=== PATIENT | male | born 1980 | race African-American/Black ===

== ENCOUNTER 2024-06-21 14:39 | Emergency (ER) | payer OTHER, SELFPAY ==
--- NOTE | ~2024-06-21 | XR_ITS ---
EXAMINATION: XR chest 2V DATE: 06/21/2024 16:58 INDICATION: Chest pain. TECHNIQUE: Frontal and lateral views of the chest were obtained. COMPARISON: Chest 2 views 07/07/09. FINDINGS: There is no pneumonia, pleural effusion, or pneumothorax. The heart size is normal. IMPRESSION: 1. No acute cardiopulmonary disease. Reviewed, dictated and finalized at location A. RAL RESOURCES INSTRUCTOR
--- NOTE | 2024-06-21 14:40 | ECG_ITS ---
Test Date: 2024-06-21 14:45:08 Measurements Intervals Line [place] Rate: 90 P: 60 AR: 154 QRS: -34 QRSD: 100 T: -10 QT: 348 QTc: 427 Interpretive Statements SINUS RHYTHM LEFT AXIS DEVIATION LEFT VENTRICULAR HYPERTROPHY AND ST-T CHANGE CANNOT R/O SEPTAL INFARCT, AGE INDETERMINATE MINIMAL Q WAVES- HIGH LATERAL LEADS BORDERLINE T WAVE ABNORMALITY- INF/LAT LEADS BASELINE ARTIFACT- I, II, AVR, AVF, V1-V2, V4-V6 ABNORMAL ECG No previous ECG available for comparison Electronically Signed On 06-21-2024 17:07:07 CORPORATE TREASURER by Alvaro May D.O.
--- OUTSIDE RECORDS SUMMARY | 2024-06-21 14:41 | XMS_ITS | Referral Summary ---
Author Organization [facility] Address [address] [place] [address] Care Team Providers Care Currency Exchange Specialist Name Role Phone Ck Palafox MD Primary Care Provider [phone] Source Comments [facility],non-owned Affiliates and Associated Physician Practices is amultiple site organization consisting of ambulatory clinics and hospital sitesin [place] and [place]. This disclosure is being madepursuant to the Care Everywhere program and may not contain all information available regarding this patient. Last updated 18.[facility] Allergies No known active allergies Medications * Be aware that medications may not be up to date on this document. Alwaysverify current medications with the patient. Medication Sig Dispensed Refills Start Date End Date Status aspirin (ASPIRIN) 81 MG chew tablet Take 1 tablet by mouth once daily 100 tablet 3 11/12/2019 Active atorvastatin (LIPITOR) 40 MG tablet Take 1 tablet by mouth at bedtime 30 tablet 3 11/11/2019 Active amLODIPine (Norvasc) 10 MG tablet Take 1 (one) tablet by mouth once daily 90 tablet 2 09/26/2022 Active lisinopril (Prinivil; Zestril) 10 MG tablet Take 1 (one) tablet by mouth once daily 90 tablet 2 09/26/2022 Active azithromycin (Zithromax) 250 MG tablet TAKE 2 TABLETS BY MOUTH ON DAY 1, AND THEN TAKE 1 TABLET BY MOUTH ONCE A DAY ON DAY 2 THROUGH DAY 5 01/02/2022 Active lidocaine (Lidoderm) 5 % patch Apply 1 (one) patch to skin once daily Apply patch to most painful area and remove after 12 hours. May reapply a new patch 12 hours later. 15 patch 04/29/2023 Active cyclobenzaprine (Flexeril) 10 MG tablet Take 1 (one) tablet by mouth 3 times daily as needed for Muscle Spasms 30 tablet 04/29/2023 Active Active Problems Problem Noted Date Diagnosed Date Hospital discharge follow-up 10/05/2022 Acute right-sided weakness 09/23/2022 HTN (hypertension) 09/23/2022 HLD (hyperlipidemia) 09/23/2022 Tobacco abuse 09/23/2022 Alcohol abuse 09/23/2022 Facial droop 09/23/2022 Right sided weakness 09/23/2022 Basal ganglia stroke 09/23/2022 Cerebrovascular accident (CVA) 11/10/2019 Immunizations Name Administration Dates Next Due HEP A VACCINE, ADULT 03/12/2019 INFLUENZA VACCINE 03/30/2019 Social History Tobacco Use Types Packs/Day Years Used Date Smoking Tobacco: Former Cigarettes Smokeless Tobacco: Never Tobacco Cessation:Counseling Given: Not Answered Alcohol Use Standard Drinks/Week Comments Yes 0 (1 standard drink = 0.6 oz pur e alcohol) occa AUDIT-C Answer Date Recorded Q1: How often do you have a drink containing alcohol? 4 or more times a week 09/23/2022 Q2: How many drinks containi ng alcohol do you have on a typical day when you are drinking? 5 or 6 Q3: How often do you have si x or more drinks on one occasion? Weekly 09/23/2022 Overall Financial Resource Strain (CARDIA) Answe r Date Recorded How hard is it for you to pa y for the very basics like food, housing, medical care, and heating? Not hard at all 09/23/2022 [facility] - Occupational Stress Questionnaire Answer Date Recorded Do you feel stress - tense, restless, nervous, or anxious, or unable to sleep at night because your mind is troubled all the time - these days? Not at all 09/23/2022 Hunger Vital Sign Answer Date Recorded Within the past 12 months, y ou worried that your food would run out before you got the money to buy more. Never true 09/24/19 23 Within the past 12 months, t he food you bought just didn't last and you didn't have money to get more. Never true 09/23/2022 PRAPARE - Transportation Answer Date Re corded In the past 12 months, has l ack of transportation kept you from medical appointments or from getting medications? No 08/29 In the past 12 months, has l ack of transportation kept you from meetings, work, or from getting things needed for daily living? No 09/23/2022 Housing Stability Vital Sign Answer Kings e Recorded In the last 12 months, was t here a time when you were not able to pay the mortgage or rent on time? No 09/23/2022 In the last 12 months, how many places have you lived? 1 09/23/2022 In the last 12 months, was t here a time when you did not have a steady place to sleep or slept in a care home (including now)? No 09/23/2022 Sex and Gender Information Value Date Recorded Sex Assigned at Male 04/29/2023 9:07 PM PHOTOGEOLOGIST Gender Identity Male 04/29/2023 9:07 PM PHOTOGEOLOGIST Sexual Orientation Straight 04/29/2023 9: 07 PM PHOTOGEOLOGIST Last Filed Vital Signs Vital Sign Reading Time Taken Comments Blood Pressure 144/95 04/29/2023 8:31 PM PHOTOGEOLOGIST Pulse 85 04/29/2023 8:35 PM PHOTOGEOLOGIST Temperature 36.4 C (97.5 F) 04/29/2023 1:39 PM PHOTOGEOLOGIST Respiratory Rate 18 04/29/2023 8:35 PM PHOTOGEOLOGIST Oxygen Saturation 96% 04/29/2023 1:18 PM PHOTOGEOLOGIST Inhaled Oxygen Concentration - - Weight 86.2 kg (190 lb) 04/29/2023 1:18 PM PHOTOGEOLOGIST Height 172.7 cm (5' 8 ) 04/29/2023 1:18 PM PHOTOGEOLOGIST Body Mass Index 28.89 04/29/2023 1:18 PM PHOTOGEOLOGIST Functional Status Functional Status Response Date of Assess ment Is person deaf or have serious hearing difficult y? No 09/23/2022 Is person blind or have serious difficulty seein g? No 09/23/2022 Does person have serious dif ficulty walking/climbing stairs? No 09/23/2022 Does person have difficulty dressing/bathing? No 09/23/2022 Does person have difficulty doing errands alone? No 09/23/2022 Cognitive Status Response Date of Assessm ent Does person have difficulty concentrating/remembering/making decisions? No 09/23/2022 Plan of Treatment Not on file Procedures Procedure Name Priority Date/Time Associated Diagnosis Comments BASIC METABOLIC PANEL (CALCIUM TOTAL) Routine 09/25/2022 1:55 AM CDT from Last 3 Months or Most Recently Relevant to Health Maintenance Results * BASIC METABOLIC PANEL (CALCIUM TOTAL) (09/25/2022 1:55 AM CDT) BUN 9 7 - 26 mg/dL 09/25/2022 3:26 AM [facility] Creatinine 0.87 0.71 - 1.16 mg/dL 09/25/2022 3:26 AM [facility] Sodium 140 136 - 145 mmol/L 09/25/2022 3:26 AM [facility] Potassium 3.8 3.5 - 4.5 mmol/L 09/25/2022 3:26 AM [facility] Chloride 106 98 - 107 mmol/L 09/25/2022 3:26 AM [facility] CO2 22 22 - 29 mmol/L 09/25/2022 3:26 AM [facility] Glucose 103 70 - 115 mg/dL 09/25/2022 3:26 AM [facility] Calcium 9.3 8.4 - 10.2 mg/dL 09/25/2022 3:26 AM [facility] Anion Gap 16 8 - 18 09/25/2022 3:26 AM [facility] BUN/Creatinine Ratio 10 7 - 23 09/25/2022 3:26 AM [facility] Osmolality Calculated 289 270 - 300 mOsm/kg 09/25/2022 3:26 AM [facility] eGFR by CKD-EPI >90 >=90 mL/min/1.7 3 m2 09/25/2022 3:26 AM [facility] Blood BLOOD SPECIMEN / Unknown Lab Venipuncture / Unknown 09/25/2022 1:55 AM CDT 09/25/2022 2:55 AM CDT Nicolas Couch MD LAB - CHEMISTRY ORDERABLES [facility] [address] [place] [id number], [facility] [phone] from Last 3 Months or Most Recently Relevant to Health Maintenance Advance Directives * Full Code (Latest Code Status on File) Date Activated Date Inactivated Comments 09/23/2022 6:58 AM 09/25/2022 8:15 PM * Full Code Date Activated Date Inactivated Comments 11/11/2019 1:28 AM 11/11/2019 6:17 PM * Full Code Date Activated Date Inactivated Comments 11/10/2019 12:24 PM 11/11/2019 1:28 AM Care Teams Currency Exchange Specialist Relationship Specialty Start Date End Date Ck Palafox MD PCP - General 03/29/13
--- OUTSIDE RECORDS SUMMARY | 2024-06-21 14:41 | XMS_ITS | Clinical Summary ---
Author Organization [facility] Address [address] [place] [address] Care Team Providers Care Port Traffic Manager Name Role Phone María Smith MD Primary Care Provider Allergies No known active allergies Medications ondansetron (ZOFRAN-ODT) 4 MG disintegrating tablet Take 1 tablet (4 mg total) by mouth every 8 (eight) hours as needed for Nausea. 20 tablet Active Social History Tobacco Use Types Packs/Day Years Used Date Smoking Tobacco: Every Day Cigarettes Smokeless Tobacco: Never Tobacco Cessation:Ready to Q uit: Not Asked; Counseling Given: Not Answered Alcohol Use Standard Drinks/Week Comments Yes 0 (1 standard drink = 0.6 oz pur e alcohol) Socially Sex and Gender Information Value Date Recorded Sex Assigned at Not on file Legal Sex Male 2:54 PM [employer] Gender Identity Not on file Sexual Orientation Not on file Last Filed Vital Signs Vital Sign Reading Time Taken Comments Blood Pressure 143/92 07/02/2022 3:05 PM [employer] Pulse 84 07/02/2022 3:05 PM [employer] Temperature 37 C (98.6 F) 07/02/2022 3:05 PM [employer] Respiratory Rate 18 07/02/2022 3:05 PM [employer] Oxygen Saturation 98% 07/02/2022 3:05 PM [employer] Inhaled Oxygen Concentration - - Weight 83.9 kg (185 lb) 07/02/2022 3:05 PM [employer] Height 177.8 cm (5' 10 ) 07/02/2022 3:05 PM [employer] Body Mass Index 26.54 07/02/2022 3:05 PM [employer] Plan of Treatment Health Maintenance Due Date Last Done Comments Colorectal Cancer Screening Colonoscopy (10 Years) 1978 Annual Physical 1981 Pneumococcal Vaccine: Pediat rics (0 to 5 Years) and At-Risk Patients (6 to 64 Years) (1 of 2 - PCV) 02/18/1984 Hepatitis C 02/18/1996 DTaP, Tdap and Td Vaccines ( 1 - Tdap) 1997 Hepatitis B Vaccines (1 of 3 - 19+ 3-dose series) 1997 COVID-19 Vaccine (1 - 2023-2 5 season) 2023 Influenza Adult (#1) 2024 Meningococcal B Vaccine Aged Out No l onger eligible based on patient's age to complete this topic Meningococcal Vaccine Aged Out No eldon linnette eligible based on patient's age to complete this topic RSV Immunizations Under 20 Months Aged Out No longer eligible based on patient's age to complete this topic Insurance [facility] Care Teams Port Traffic Manager Relationship Specialty Start Date End Date [place] [id number] [address] [address] [place] [address] PCP - General INTERNAL MEDICINE 07/02/22
--- OUTSIDE RECORDS SUMMARY | 2024-06-21 14:41 | XMS_ITS | Referral Summary ---
Author Organization [facility] Address [address] [place] [address] Care Team Providers Care Portfolio Administrator Name Role Phone María Smith MD Primary Care Provider Encounters Date Type Department Care Team Description 04/01/2024 3:30 PM TABLE MACHINE OPERATOR Office Visit [facility] Medical [facility] Primary Care [address] [id number] María Smith MD History of stroke (Primary Dx); Cerebrovascular accident (CVA), unspecified mechanism (HCC); Mixed hyperlipidemia; Primary hypertension; Cocaine abuse (HCC); Tobacco dependence syndrome; Prediabetes; Vitamin D deficiency; Need for hepatitis B screening test from Last 3 Months Allergies No known active allergies Medications acetaminophen (TYLENOL) 500 mg tablet 1000 MG (2 X 500 MG) ORALLY EVERY 6 HOURS NEEDED FOR FEVER OR PAIN 06/22/19 24 Active tadalafiL (CIALIS) 20 mg tablet TAKE 1 TABLET BY MOUTH NEEDED DIRECTED 04/16/20 23 Active loratadine (CLARITIN) 10 mg tablet 10 MG ORALLY DAILY 06/22/19 24 Active fluticasone propionate (FLONASE) 50 mcg/actuation nasal spray 2 SPRAY INTRANASALLY DAILY ADMINISTER INTO EACH NOSTRIL 06/22/19 24 Active amLODIPine (NORVASC) 10 mg tabletIndications: Cerebrovascular accident (CVA), unspecified mechanism (HCC) Take 1 tablet (10 mg total) by mouth daily 30 tablet 11 04/01/20 24 025 Active aspirin 81 mg enteric coated tabletIndications: Cerebrovascular accident (CVA), unspecified mechanism (HCC) Take 1 tablet (81 mg total) by mouth daily 30 tablet 04/01/20 24 Active atorvastatin (LIPITOR) 40 mg tabletIndications: Cerebrovascular accident (CVA), unspecified mechanism (HCC),Mixed hyperlipidemia Take 1 tablet (40 mg total) by mouth nightly at bedtime. 30 tablet 04/01/20 24 Active clopidogreL (PLAVIX) 75 mg tabletIndications: Cerebrovascular accident (CVA), unspecified mechanism (HCC) Take 1 tablet (75 mg total) by mouth daily 30 tablet 04/01/20 24 Active lisinopriL (PRINIVIL,ZESTRIL) 20 mg tabletIndications: Primary hypertension Take 1 tablet (20 mg total) by mouth daily 30 tablet 04/01/20 24 Active Active Problems Problem Noted Date Diagnosed Date Chronic back pain 04/01/2024 Prediabetes 07/16/2023 Assessment & Plan (04/03/2024 8:00 PM TABLE MACHINE OPERATOR): Last A1C Lab Results Component Value Date HGBA1C 5.8 (H) 07/09/2023 Low carb diet Continue off medication Vitamin D deficiency 07/16/2023 Cocaine abuse 11/06/2022 Assessment & Plan (04/03/2024 8:00 PM TABLE MACHINE OPERATOR): Encouraged abstinence Cerebrovascular disease 11/06/2022 Assessment & Plan (07/13/2023 5:53 PM CDT): Recurrent stroke resulting in significant disability Had discussion about medication compliance and need to stop smoking and using drugs Continue ASA, statin, clopidogrel He is currently unable to work due to his weakness Assessment & Plan (11/06/2022 10:12 AM CDT): Recent recurrent stroke resulting in significant disability Had discussion about medication compliance and need to stop smoking and using drugs Continue ASA, statin, clopidogrel Alcohol abuse 09/23/2022 Assessment & Plan (07/13/2023 5:52 PM CDT): Encouraged abstinence Continue to monitor Basal ganglia stroke 09/23/2022 Facial droop 09/23/2022 Hemiparesis of right dominan t side as late effect of cerebral infarction (CMS/HCC) 09/23/2022 Assessment & Plan (07/13/2023 5:53 PM CDT): Patient with significant disability due to recurrent strokes He has minimal movement and use of right arm and has been unable to work Agree with his applying for disability as he is unlikely to work given almost no use of his dominant right side Assessment & Plan (11/06/2022 10:08 AM CDT): Patient with significant disability due to recent stroke He has minimal movement and use of right arm and has been unable to work Agree with his applying for disability as he is unlikely to work given almost no use of his dominant right side Tobacco dependence syndrome 01/21/2020 Assessment & Plan (04/03/2024 7:59 PM TABLE MACHINE OPERATOR): Counseled on tobacco cessation, health benefits of quitting, current and long- term risks of continuing to smoke He is working on quitting Assessment & Plan (07/13/2023 5:52 PM CDT): Counseled on tobacco cessation, health benefits of quitting, current and long- term risks of continuing to smoke He is working on quitting Assessment & Plan (11/06/2022 10:08 AM CDT): Counseled on tobacco cessation, health benefits of quitting, current and long- term risks of continuing to smoke He is working on quitting Assessment & Plan (05/26/2022 2:36 PM TABLE MACHINE OPERATOR): Encouraged smoking cessation Assessment & Plan (01/21/2020 11:35 AM CDT): Congratulated him on quitting smoking History of stroke 11/20/2019 Overview (11/20/2019): 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 Assessment & Plan (04/03/2024 7:59 PM TABLE MACHINE OPERATOR): 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 No new neurologic symptoms Continue-- ASA, Statin, clopidogrel Encouraged smoking cessation Assessment & Plan (07/13/2023 5:51 PM CDT): 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 No new neurologic symptoms Continue-- ASA, Statin, clopidogrel Encouraged smoking cessation Assessment & Plan (05/26/2022 2:34 PM TABLE MACHINE OPERATOR): No new neurologic symptoms However, he has run out of medication Will restart BP medication, ASA, Statin, clopidogrel Encouraged smoking cessation Assessment & Plan (01/21/2020 11:37 AM CDT): Has had some improvement in residual weakness He has been able to go back to work Continue ASA, plavix, statin Congratulated him on smoking cessation Assessment & Plan (11/20/2019 9:44 AM CDT): Patient with multiple TIAs followed by CVA He had been of medication and had not seen a doctor in at least 5 years He now has right-sided upper and lower extremity weakness Continue current medications Patient is trying to get insurance so he can proceed with speech therapy and physical therapy Hypertension Assessment & Plan (04/03/2024 7:59 PM TABLE MACHINE OPERATOR): Goal BP <130/80 BP not at goal Encouraged medication compliance Continue to monitor Assessment & Plan (07/13/2023 5:52 PM CDT): Goal BP <130/80 BP not at goal Encouraged medication compliance Continue to monitor Assessment & Plan (11/06/2022 10:06 AM CDT): Goal BP <130/80 BP not at goal Will increase lisinopril to 20 mg Continue amlodipine 10 mg Encouraged low salt diet Assessment & Plan (05/26/2022 2:38 PM TABLE MACHINE OPERATOR): Goal BP <130/80 BP not at goal Will restart amlodipine and increase to 10 mg Hold lisinopril Encouraged low salt diet Assessment & Plan (01/21/2020 11:36 AM CDT): Well controlled Continue current medication Hyperlipidemia Assessment & Plan (04/03/2024 7:59 PM TABLE MACHINE OPERATOR): Lab Results Component Value Date LDLCALC See Comment 07/09/2023 LDL goal <70 No side effects of prescribed medication Continue statin Assessment & Plan (07/13/2023 5:52 PM CDT): Lab Results Component Value Date LDLCALC See Comment 07/09/2023 LDL goal <70 No side effects of prescribed medication Continue statin Assessment & Plan (11/06/2022 10:06 AM CDT): Lab Results Component Value Date LDLCALC 152 (H) 05/26/2022 LDL goal <70 No side effects of prescribed medication Continue statin Assessment & Plan (05/26/2022 2:39 PM TABLE MACHINE OPERATOR): No results found for: LDLCALC LDL goal <70 He has been out of medication Restart atorvastatin Assessment & Plan (01/21/2020 11:36 AM CDT): No side effects of medication Continue statin Resolved Problems Problem Noted Date Diagnosed Date Resolved Date Numbness 04/01/2024 04/01/2024 Smoker 04/01/2024 04/01/2024 Immunizations Immunization Administration Dates Next Due Hep A, Adult 03/12/2019 Influenza, Unspecified 03/31/2024(Deferr ed: Patient Refused),02/28/2023(Deferred: Patient Refused),03/30/2019 Social History Tobacco Use Types Packs/Day Years Used Date Smoking Tobacco: Light Smoker Cigarettes Smokeless Tobacco: Never Tobacco Cessation:Ready to Q uit: Not Asked; Counseling Given: Not Answered Alcohol Use Standard Drinks/Week Comments Yes 0 (1 standard drink = 0.6 oz pur e alcohol) PHQ-2 Answer Date Recorded PHQ-2 Total Score (If total score is 3 or more points, staff should administer the PHQ-9) 0 04/01/2024 Sex and Gender Information Value Date Recorded Sex Assigned at Not on file Legal Sex Male 1:18 AM TABLE MACHINE OPERATOR Gender Identity Male 11/06/2022 9:55 AM CDT Sexual Orientation Not on file Last Filed Vital Signs Vital Sign Reading Time Taken Comments Blood Pressure 160/94 04/01/2024 3:32 PM TABLE MACHINE OPERATOR Pulse 95 04/01/2024 3:32 PM TABLE MACHINE OPERATOR Temperature 37.3 C (99.1 F) 04/01/2024 3:32 PM TABLE MACHINE OPERATOR Respiratory Rate 20 04/01/2024 3:32 PM TABLE MACHINE OPERATOR Oxygen Saturation 99% 04/01/2024 3:32 PM TABLE MACHINE OPERATOR Inhaled Oxygen Concentration - - Weight 88.5 kg (195 lb 1.7 oz) 04/01/2024 3:32 P M TABLE MACHINE OPERATOR Height 175.3 cm (5' 9 ) 04/01/2024 3:32 PM TABLE MACHINE OPERATOR Body Mass Index 28.81 04/01/2024 3:32 PM TABLE MACHINE OPERATOR Plan of Treatment Not on file Procedures Procedure Name Priority Date/Time Associated Diagnosis Comments PSA SCREEN Routine 07/09/2023 11:31 AM CDT Screening for prostate cancer HEPATITIS PANEL, ACUTE Routine 10/31/2019 2:11 AM CDT from Last 3 Months or Most Recently Relevant to Health Maintenance Results * PSA screen (07/09/2023 11:31 AM CDT) PSA-Total 0.67 ng/mL Comment: Interpretive Data AGE SEX REFERENCE INTERVAL 0 minutes-150 years Female None 0 minutes-49 years Male None 50-59 years Male 0-3.90 60-69 years Male 0-5.40 70-79 years Male 0-6.20 80-150 years Male 0-6.20 The [employer] PSA Total assay procedure was used. Results from different manufacturers or methods may not be comparable. Serial testing should be performed using the same method. Current interpretive data last revised 21. Blood 07/09/2023 11:3 1 AM CDT 07/09/2023 4:45 PM CDT us María Smith MD LAB BLOOD ORDERABLES Fi [place]al Result JB [id number] [address] [place] [address] * Hepatitis panel, acute (10/31/2019 2:11 AM CDT) HepBsAg NONREACT NONREACTIVE [facility] Comment: Siemens CentaurXP using MARY (chemiluminescent immunoassay) technology. NONREACTIVE: IgM antibodies to Hepatitis B Surface antigen not detected. REACTIVE: IgM antibodies to Hepatitis B Surface antigen detected. Reactive results will be confirmed by neutralization testing. HBsAb qn <3.10 mIU/mL [facility] Comment: Siemens CentaurXP using MARY (chemiluminescent immunoassay) technology. 9.99 IU/L or less.....NONREACTIVE: IgM antibodies to Hepatitis B Surface antibody are not detected. 10.00 IU/L or greater..REACTIVE: IgM antibodies to Hepatitis B Surface antibody are detected. Hep B core IgM NONREACT NONREACTIVE [facility] Comment: Siemens CentaurXP using MARY (chemiluminescent immunoassay) technology. NONREACTIVE: IgM antibodies to Hepatitis B Core antigen not detected. EQUIVOCAL: IgM antibodies to Hepatitis B Core antigen may or may not be present. Obtain a new specimen and retest. REACTIVE: IgM antibodies to Hepatitis B Core antigen detected. Hep A IgM NONREACT NONREACTIVE [facility] Comment: Siemens CentaurXP using MARY (chemiluminescent immunoassay) technology. NONREACTIVE: IgM antibodies to Hepatitis A not detected. This does not exclude possibility of exposure to Hepatitis A or early acute infection. EQUIVOCAL:IgM antibodies to Hepatitis A may or may not be present. Suggest recollection and retest. REACTIVE: Antibodies to Hepatitis A detected. Hep C Ab NONREACT NONREACTIVE [facility] Comment: Siemens CentaurXP using MARY (chemiluminescent immunoassay) technology. NONREACTIVE: Antibodies to Hepatitis C not detected. This does not exclude early acute Hepatitis C infection, possibility of exposure to Hepatitis C, antibodies below detection limit, or to lack of antibody reactivity to the antigen used in this assay. EQUIVOCAL: Antibodies to Hepatitis C may or may not be present. Sample to be confirmed by real-time PCR method. REACTIVE: Antibodies to Hepatitis C detected.Sample to be confirmed by real-time PCR method. 10/31/2019 2:11 AM CDT 10/31/2019 2:21 AM CDT Narrative Resulting Agency Comment [facility] us Tay Montes MD LAB MICROBIOLOGY - GE NERAL ORDERABLES Final Result [facility] [employer] [address] [place] [address], [facility] [phone] from Last 3 Months or Most Recently Relevant to Health Maintenance Insurance [employer] [facility] Care Teams Portfolio Administrator Relationship Specialty Start Date End Date María Smith MD PCP - General Internal Medicine 11/04/19
--- OUTSIDE RECORDS SUMMARY | 2024-06-21 14:41 | XMS_ITS | Patient Health Summary ---
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 with a visually estimated EF of 65 - 70%. Normal wallmotion. Grade I diastolic dysfunction with normal left atrial pressure. Right Ventricle: Right ventricle size is normal. Normal systolicfunction. Left Atrium: No interatrial septum shunt present viewable with agitatedsaline. No significant valvular abnormalities. IVC/SVC: IVC diameter is less than or equal to 21 mm and decreasesgreater than 50% during inspiration; therefore the estimated right atrialpressure is normal (~3 mmHg). Pericardium: Trivial pericardial effusion present. Nicolas Couch MD ECHO CUPID * CBC W/O DIFFERENTIAL (09/25/2022 1:55 AM CDT) Only the most recent of3 resultswithin the time period is included. WBC 5.0 3.5 - 10.5 10 3/uL 09/25/2022 3:05 AM [facility] RBC 4.73 4.30 - 5.70 10 6/uL 09/25/2022 3:05 AM [facility] Hemoglobin 14.7 12.0 - 17.6 g/dL 09/25/2022 3:05 AM [facility] Hematocrit 41.0 35.2 - 51.7 % 09/25/2022 3:05 AM [facility] MCV 86.7 80.7 - 98.3 fL 09/25/2022 3:05 AM [facility] MCH 31.1 26.7 - 34.0 pg 09/25/2022 3:05 AM [facility] MCHC 35.9 30.8 - 35.9 g/dL 09/25/2022 3:05 AM [facility] RDW-SD 37.2 36.0 - 50.0 fL 09/25/2022 3:05 AM [facility] RDW-CV 11.8 11.2 - 14.8 % 09/25/2022 3:05 AM [facility] Platelet Count 222 150 - 400 10 3/uL 09/25/2022 3:05 AM [facility] MPV 10.7 9.4 - 12.9 fL 09/25/2022 3:05 AM [facility] nRBC Absolute 0.00 0 10 3/uL 09/25/2022 3:05 AM [facility] nRBC Auto 0.0 0 /100 WBC 09/25/2022 3:05 AM [facility] Blood BLOOD SPECIMEN / Unknown Lab Venipuncture / Unknown 09/25/2022 1:55 AM CDT 09/25/2022 2:52 AM T Nicolas Couch MD LAB - HEMATOLOG Y ORDERABLES [facility] [address] [place] [id number], [facility] [phone] * BASIC METABOLIC PANEL (CALCIUM TOTAL) (09/25/2022 1:55 AM CDT) Only the most recent of2 resultswithin the time period is included. BUN 9 7 - 26 mg/dL 09/25/2022 3:26 AM [facility] Creatinine 0.87 0.71 - 1.16 mg/dL 09/25/2022 3:26 AM [facility] Sodium 140 136 - 145 mmol/L 09/25/2022 3:26 AM [facility] Potassium 3.8 3.5 - 4.5 mmol/L 09/25/2022 3:26 AM [facility] Chloride 106 98 - 107 mmol/L 09/25/2022 3:26 AM [facility] CO2 22 22 - 29 mmol/L 09/25/2022 3:26 AM [facility] Glucose 103 70 - 115 mg/dL 09/25/2022 3:26 AM [facility] Calcium 9.3 8.4 - 10.2 mg/dL 09/25/2022 3:26 AM [facility] Anion Gap 16 8 - 18 09/25/2022 3:26 AM [facility] BUN/Creatinine Ratio 10 7 - 23 09/25/2022 3:26 AM [facility] Osmolality Calculated 289 270 - 300 mOsm/kg 09/25/2022 3:26 AM [facility] eGFR by CKD-EPI >90 >=90 mL/min/1.7 3 m2 09/25/2022 3:26 AM [facility] Blood BLOOD SPECIMEN / Unknown Lab Venipuncture / Unknown 09/25/2022 1:55 AM CDT 09/25/2022 2:55 AM CDT Nicolas Couch MD LAB - CHEMISTRY ORDERABLES [facility] [address] [place] [address], [facility] [phone] * TROPONIN-I HIGH SENSITIVE REFLEX 1HOUR (09/23/2022 8:58 AM CDT) [facility] Troponin I High Sensitive <3 <=35 ng/L 09/23/2022 9:58 AM CDT [facility] Delta Troponin I HS 09/23/2022 9:58 AM T [facility] Comment:Result exceeds linea rity range. A delta value is unable to be calculated. Blood BLOOD SPECIMEN / Unknown Venipuncture / Unknown 09/23/2022 8:58 AM CDT 09/23/2022 9:25 AM CDT Nicolas Couch MD LAB - CHEMISTRY ORDERABLES [address] [address], [facility] [phone] * TROPONIN-I HIGH SENSITIVE BASELINE + 1HR (09/23/2022 7:47 AM CDT) [facility] Troponin I High Sensitive <3 <=35 ng/L 09/23/2022 8:41 AM CDT [facility] Blood BLOOD SPECIMEN / Unknown Venipuncture / Unknown 09/23/2022 7:47 AM CDT 09/23/2022 8:06 AM CDT Nicolas Couch MD LAB - CHEMISTRY ORDERABLES Performing Organization Address City/[facility]/ZIP Co de Phone Number [address] [address], [facility] [phone] * (ABNORMAL) LIPID PROFILE (09/23/2022 7:47 AM CDT) Only the most recent of2 resultswithin the time period is included. [facility] Cholesterol Total 200(H) <200 mg/dL 09/23/2022 8:34 AM CDT [facility] HDL 45 >40 mg/dL 09/23/2022 8:34 AM [facility] Comment: ATP III Classification of HDL Cholesterol: <40 mg/dL: Considered a major risk factor. >60 mg/dL: Considered a negative risk factor. LDL Calculated 113(H) <100 mg/dL 09/23/2022 8:34 AM CDT [facility] Comment: ATP III Classification of LDL Cholesterol: <100 mg/dL: Optimal 100 - 129 mg/dL: Near Optimal/Above Optimal 130 - 159 mg/dL: Borderline High 160 - 189 mg/dL: High >190 mg/dL: Very High Triglycerides 210(H) <150 mg/dL 09/23/2022 8:34 AM CDT [facility] Comment: ATP III Classification of Triglycerides: <150 mg/dL: Normal 150 - 199 mg/dL: Borderline High 200 - 400 mg/dL: High >500 mg/dL: Very High Blood BLOOD SPECIMEN / Unknown Venipuncture / Unknown 09/23/2022 7:47 AM CDT 09/23/2022 8:06 AM CDT Nicolas Couch MD LAB - CHEMISTRY ORDERABLES [address] [address], [facility] [phone] * MRI BRAIN WO CONTRAST (09/23/2022 6:45 AM CDT) Only the most recent of2 resultswithin the time period is included. Anatomical Region Laterality Modality Head Magnetic Resonan ce 09/23/2022 7:07 AM CDT Impressions 09/23/2022 6:06 PM CDT IMPRESSION: 1.Findings compatible with small acute or chronic infarcts in the left basal ganglia, extending along the left rowe radiata. 2.Questionable faint abnormal diffusion also noted in the right basal ganglia which could represent age-indeterminate smaller infarction. 3.Redemonstration of chronic infarcts in the bilateral basal ganglia and adjacent periventricular white matter, left more than right, as outlined. 4.No evidence of acute intracranial hemorrhage. These findings were discussed in detail with the patient's care provider, Dr. Hawkins by Dr. Arturo Dhillon via telephone at 0716 on 09/23/2022 with readback comprehension and verification. Report dictated by Humble Lima MD (residential sales associate) I, Genaro Kline MD have personally reviewed and interpreted this examination/study. > Interpreting Provider: Genaro Kline MD on 09/23/2022 6:06 PM Narrative 09/23/2022 6:06 PM CDT PROCEDURE: MRI BRAIN WO CONTRAST, DATE/TIME OF EXAM: 09/23/2022 6:45 AM, LOCATION [facility] INDICATION: R53.1: Right sided weakness R29.810: Facial droop ADDITIONAL CLINICAL INFORMATION: Ordering Provider Reason For Exam: Stroke? Technologist Note: Does the patient have a defibrillator, pacemaker, aneurysm clips or implanted mechanical devices?->No Does the patient have metal implants or stents?->No Additional: None. EXAMINATION: Magnetic resonance imaging (MRI) of the brain without contrast CONTRAST: None. TECHNIQUE: MRI of the brain was performed without contrast according to standard protocol. COMPARISON: CT of the head and CT angiogram of the head and neck from 09/23/2022. MRI of the brain from 11/11/2019. FINDINGS: Suspected faint susceptibility artifacts in the bilateral basal ganglia infarcts could represent trace hemosiderin deposition or mineralization. Otherwise, no evidence of acute or chronic hemorrhage is identified. Redemonstration of chronic infarcts in the bilateral basal ganglia, with multiple foci of chronic gliosis and encephalomalacia in the bilateral basal ganglia, left more than right, extending along the periventricular white matter/rowe radiata, left more than right. There is a superimposed focus of restricted diffusion within the posterior aspect of the left basal ganglia, extending along the left rowe radiata and questionable minimal patchy area of abnormal diffusion on the right side. Findings likely represent acute on chronic small left basal ganglia infarction, questionably on the right. Otherwise, no evidence of acute cerebral infarction is seen. There is mild cerebral volume loss with associated ex vacuo ventricular dilatation. No mass effect or midline shift is seen. Periventricular and subcortical white matter FLAIR hyperintensities likely represent sequelae of chronic small vessel ischemic disease. Old small lacunar infarct is present in the in the left thalamus. The corpus callosum and sella appear normal. The posterior fossa, brainstem, and craniocervical junction appear normal. The visualized portions of the orbits appear grossly unremarkable. There is polypoid mucosal thickening or mucous retention cyst in the right maxillary sinus. Polypoid mucosal thickening and layering secretions with air-fluid level in the left maxillary sinus. Minimal mucosal thickening in the remaining paranasal sinuses. The imaged mastoid air cells appear grossly clear. Normal flow voids are demonstrated in the carotid arteries and basilar artery. The calvarium and visualized cervical spine appear normal. Scattered small cervical lymph nodes are nonspecific. Procedure Note Genaro Kline MD - 09/23/2022 PROCEDURE: MRI BRAIN WO CONTRAST, DATE/TIME OF EXAM: 09/23/2022 6:45AM, LOCATION [facility] INDICATION: R53.1: Right sided weakness R29.810: Facial droop ADDITIONAL CLINICAL INFORMATION: Ordering Provider Reason For Exam: Stroke? Technologist Note: Does the patient have a defibrillator, pacemaker, aneurysm clips or implanted mechanical devices?->No Does the patienthave metal implants or stents?->No Additional: None. EXAMINATION: Magnetic resonance imaging (MRI) of the brain withoutcontrast CONTRAST: None. TECHNIQUE: MRI of the brain was performed without contrast according to standard protocol. COMPARISON: CT of the head and CT angiogram of the head and neck from 09/23/2022. MRI of the brain from 11/11/2019. FINDINGS: Suspected faint susceptibility artifacts in the bilateral basal ganglia infarcts could represent trace hemosiderin deposition or mineralization. Otherwise, no evidence of acute or chronic hemorrhage is identified. Redemonstration of chronic infarcts in the bilateral basal ganglia, with multiple foci of chronic gliosis and encephalomalacia in the bilateral basal ganglia, left more than right, extending along the periventricular white matter/rowe radiata, left more than right. There is asuperimposed focus of restricted diffusion within the posterior aspect of the leftbasal ganglia, extending along the left rowe radiata and questionableminimal patchy area of abnormal diffusion on the right side. Findings likely represent acute on chronic small left basal ganglia infarction, questionably on the right. Otherwise, no evidence of acute cerebral infarction is seen. There is mild cerebral volume loss with associated ex vacuo ventricular dilatation. No mass effect or midline shift is seen. Periventricular and subcortical white matter FLAIR hyperintensities likely representsequelae of chronic small vessel ischemic disease. Old small lacunar infarct is present in the in the left thalamus. The corpus callosum and sellaappear normal. The posterior fossa, brainstem, and craniocervical junctionappear normal. The visualized portions of the orbits appear grossly unremarkable. Thereis polypoid mucosal thickening or mucous retention cyst in the rightmaxillary sinus. Polypoid mucosal thickening and layering secretions withair-fluid level in the left maxillary sinus. Minimal mucosal thickening in the remaining paranasal sinuses. The imaged mastoid air cells appear grossly clear. Normal flow voids are demonstrated in the carotid arteries and basilar artery. The calvarium and visualized cervical spine appearnormal. Scattered small cervical lymph nodes are nonspecific. IMPRESSION: 1.Findings compatible with small acute or chronic infarcts in the left basal ganglia, extending along the left rowe radiata. 2.Questionable faint abnormal diffusion also noted in the right basal ganglia which could represent age-indeterminate smaller infarction. 3.Redemonstration of chronic infarcts in the bilateral basal ganglia and adjacent periventricular white matter, left more than right, asoutlined. 4.No evidence of acute intracranial hemorrhage. These findings were discussed in detail with the patient's careprovider, Dr. Hawkins by Dr. Arturo Dhillon via telephone at 0716 on 09/23/2022with readback comprehension and verification. Report dictated by Humble Lima MD (residential sales associate) Genaro Llanos MD have personally reviewed and interpretedthis examination/study. > Interpreting Provider: Genaro Kline MD on 09/23/2022 6:06 PM Maxwell Álvarez MD MR ORDERABLES * CT ANGIO BRAIN NECK STROKE (09/23/2022 1:49 AM CDT) Only the most recent of2 resultswithin the time period is included. Anatomical Region Laterality Modality Head Computed Tomogra phy 09/23/2022 5:53 AM CDT Impressions 09/23/2022 10:18 AM CDT IMPRESSION: 1. No acute intracranial hemorrhage. 2. No large arterial occlusions or significant stenoses identified in the head or neck. Viz.AI was used for large vessel occlusion detection. This study was dictated by residential sales associate Charlie Donato MD and reviewed and edited by the attending. Genaro Llanos MD have personally reviewed and interpreted this examination/study. > Interpreting Provider: Genaro Kline MD on 09/23/2022 10:18 AM Narrative 09/23/2022 10:18 AM CDT PROCEDURE: CT ANGIO BRAIN NECK STROKE, DATE/TIME OF EXAM: 09/23/2022 1:49 AM, LOCATION [facility] INDICATION: R53.1: Right sided weakness ADDITIONAL CLINICAL INFORMATION: Ordering Provider Reason For Exam: Right-sided weakness. Technologist Note: 75ml [id number] Additional: None. EXAMINATION: 1. Computed tomographic (CT) angiography of the head without and with contrast 2. CT angiography of the neck with contrast CONTRAST: IOPAMIDOL 76 % IV SOLN:75 mL TECHNIQUE: CT of the head was performed without contrast according to standard protocol. Then CT angiography of the head and neck was obtained after the uneventful administration of 74 mL Isovue-370 intravenous contrast. Three dimensional postprocessing was performed by the technologist and sent to the workstation for review. Stenosis measurements are based on NASCET criteria. CT dose reduction technique was used, including Automated Exposure Control. COMPARISON: CT angiogram of the head and neck from 11/10/2019. FINDINGS: Non-angiographic findings: Please refer to the separately dictated noncontrast head CT for the non-angiographic findings. Mild degenerative changes of the cervical spine. Angiographic findings: The visible aortic arch appears normal. The configuration of the brachiocephalic vessels is typical. The innominate artery and both subclavian arteries appear normal. There is atherosclerotic disease of the right carotid bifurcation and origin of the right internal carotid artery with less than 50 percent focal stenosis by NASCET criteria. The right common and internal carotid arteries otherwise appear normal. There is atherosclerotic disease of the left carotid bifurcation and origin of the left internal carotid artery with less than 50 percent focal stenosis by NASCET criteria. The left common and internal carotid arteries otherwise appear normal. The cervical vertebral arteries appear normal. There is suspected minimal atherosclerotic disease involving the distal internal carotid arteries without significant focal stenosis. The anterior and middle cerebral arteries appear normal. The distal vertebral arteries appear normal. The basilar artery and posterior cerebral arteries appear normal. No aneurysms, vascular occlusions, or intracranial stenoses are identified. Procedure Note Genaro Kline MD - 09/23/2022 PROCEDURE: CT ANGIO BRAIN NECK STROKE, DATE/TIME OF EXAM: 31:49 AM, LOCATION [facility] INDICATION: R53.1: Right sided weakness ADDITIONAL CLINICAL INFORMATION: Ordering Provider Reason For Exam: Right-sided weakness. Technologist Note: 75ml [id number] Additional: None. EXAMINATION: 1. Computed tomographic (CT) angiography of the head without and with contrast 2. CT angiography of the neck with contrast CONTRAST: IOPAMIDOL 76 % IV SOLN:75 mL TECHNIQUE: CT of the head was performed without contrast according to standard protocol. Then CT angiography of the head and neck was obtained after the uneventful administration of 74 mL Isovue-370 intravenous contrast. Three dimensional postprocessing was performed by the technologist and sent to the workstation for review. Stenosismeasurements are based on NASCET criteria. CT dose reduction technique was used, including Automated Exposure Control. COMPARISON: CT angiogram of the head and neck from 11/10/2019. FINDINGS: Non-angiographic findings: Please refer to the separately dictated noncontrast head CT for the non-angiographic findings. Mild degenerative changes of the cervical spine. Angiographic findings: The visible aortic arch appears normal. The configuration of the brachiocephalic vessels is typical. The innominate artery and both subclavian arteries appear normal. There is atherosclerotic disease ofthe right carotid bifurcation and origin of the right internal carotidartery with less than 50 percent focal stenosis by NASCET criteria. The right common and internal carotid arteries otherwise appear normal. There is atherosclerotic disease of the left carotid bifurcation and origin ofthe left internal carotid artery with less than 50 percent focal stenosis by NASCET criteria. The left common and internal carotid arteries otherwise appear normal. The cervical vertebral arteries appear normal. There is suspected minimal atherosclerotic disease involving the distal internal carotid arteries without significant focal stenosis. Theanterior and middle cerebral arteries appear normal. The distal vertebralarteries appear normal. The basilar artery and posterior cerebral arteries appear normal. No aneurysms, vascular occlusions, or intracranial stenoses are identified. IMPRESSION: 1. No acute intracranial hemorrhage. 2. No large arterial occlusions or significant stenoses identified inthe head or neck. Viz.AI was used for large vessel occlusion detection. This study was dictated by residential sales associate Charlie Donato MD and reviewed and edited by the attending. IGenaro MD have personally reviewed and interpretedthis examination/study. > Interpreting Provider: Genaro Kline MD on 09/23/2022 10:18 AM Torin Brasher MD CT ORDERABLES * URINALYSIS REFLEX TO MICROSCOPIC NO CULTURE (09/23/2022 1:44 AM T) Color UA Straw Straw, Yellow 09/23/2022 1:55 AM [facility] Clarity UA Clear Clear 09/23/2022 1:55 AM [facility] Specific [place] UA 1.028 1.005 - 1.030 09/23/2022 1:55 AM [facility] pH UA 5.0 5.0 - 8.0 pH 09/23/2022 1:55 AM [facility] Protein UA Negative Negative 09/23/2022 1:55 AM [facility] Glucose UA Negative Negative 09/23/2022 1:55 AM [facility] Ketone UA Negative Negative 09/23/2022 1:55 AM [facility] Bilirubin UA Negative Negative 09/23/2022 1:55 AM [facility] Blood UA Negative Negative 09/23/2022 1:55 AM [facility] Nitrite UA Negative Negative 09/23/2022 1:55 AM [facility] Leukocyte Esterase Negative Negative 09/23/2022 1:55 AM [facility] Urobilinogen UA Negative Negative mg/dL 09/23/2022 1:55 AM [facility] RBC UA 0-2 None Seen, 0-2, 3-5 /HPF 09/23/2022 1:55 AM [facility] WBC UA 0-5 None Seen, 0-5 /HPF 09/23/2022 1:55 AM [facility] Squamous Epithelial Cells UA None Seen None Seen, 0-2, 3-5 /HPF 09/23/2022 1:55 AM [facility] Urine URINE SPECIMEN OBTAINED BY CLEAN CATCH PROCEDURE / Unknown Collection / Unknown 09/23/2022 1:44 AM T 09/23/2022 1:49 AM [facility] - 09/23/2022 1:[address] [facility] Maxwell Álvarez MD LAB - URINALYSIS ORD ERABLES [facility] [address] [place] [address], [facility] [phone] * (ABNORMAL) URINE DRUG SCREEN IMMUNOASSAY (09/23/2022 1:44 AM CDT) [facility] Amphetamines Screen Urine Negative Negative : < 1000 ng/mL 09/23/2022 2:10 AM [facility] Barbiturates Screen Urine Negative Negative : < 200 ng/mL 09/23/2022 2:10 AM [facility] Benzodiazepine Screen Urine Negative Negative : < 200 ng/mL 09/23/2022 2:10 AM [facility] Opiates Urine Negative Negative : < 300 ng/mL 09/23/2022 2:10 AM [facility] Cocaine Metabolites Urine Positive(A) Negative : < 300 ng/mL 09/23/2022 2:10 AM [facility] Comment: Positive urine cocaine metabolites screening results should be confirmed by another generally accepted non-immunological method such as gas chromatography or mass spectrometry. Phencyclidine Screen Urine Negative Negative : < 25 ng/ml 09/23/2022 2:10 AM [facility] Cannabinoids Screen Urine Negative Negative : <50 ng/mL 09/23/2022 2:10 AM [facility] Methadone Screen Urine Negative Negative : < 300 ng/mL 09/23/2022 2:10 AM [facility] Fentanyl Screen Urine Negative Negative : <1.5 ng/mL 09/23/2022 2:10 AM [facility] Urine URINE / Unknown Collection / Unknown 09/23/2022 1:44 AM CDT 09/23/2022 1:49 AM T [facility] - 09/23/2022 2:10 AM T The Urine Toxicology Screening Panel does not screen for Propoxyphene, Meprobamate, Carisoprodol, Trazodone, xbnr-[id number] medications and/or volatiles (Acetone, Isopropanol, Methanol or Ethylene Glycol). Ethanol, Salicylate, Acetaminophen, Tricyclic Antidepressants and several therapeutic drugs may be individually assayed in serum or plasma specimen. Toxicology testing by the [facility] is an aid to medical diagnosis and treatment of patients. No documented chain of custody was maintained. Results are intended to be used for clinical purposes only. Maxwell Álvarez MD LAB - URINE CHEMISTR Y ORDERABLES [address] [address], [place] [phone] * INR WHOLE BLOOD - POINT OF CARE (IP) STROKE (09/23/2022 1:22 AM CDT) INR 1.0 0.9 - 1.2 09/23/2022 1:23 AM CDT [facility] Device [id number] 09/23/2022 1:23 AM CDT [facility] [place] [id number] 09/23/2022 1:23 AM CDT [facility] Blood BLOOD SPECIMEN / Unknown 09/23/2022 1:22 AM CDT 09/23/2022 1:23 AM CDT Maxwell Álvarez MD LAB - POINT OF CARE ORDERABLES Performing Organization Address [facility]/ZIP Co de Phone Number [address] [address], [place] [phone] * (ABNORMAL) CREATININE - POCT INTERFACED (09/23/2022 1:21 AM CDT) Only the most recent of2 resultswithin the time period is included. Creatinine POCT 1.11 0.30 - 1.30 mg/dL 09/23/2022 1:24 AM CDT [facility] eGFR 84(L) >90 mL/min/1.7 3 m2 09/23/2022 1:24 AM CDT [facility] Blood BLOOD SPECIMEN / Unknown 09/23/2022 1:21 AM CDT 09/23/2022 1:24 AM CDT Maxwell Álvarez MD LAB - POINT OF CARE ORDERABLES [address] [address], [place] [phone] * TROPONIN-I HIGH SENSITIVE (09/23/2022 1:10 AM CDT) Troponin I High Sensitive <3 <=35 ng/L 09/23/2022 1:44 AM CDT [facility] Blood BLOOD SPECIMEN / Unknown Venipuncture / Unknown 09/23/2022 1:10 AM CDT 09/23/2022 1:13 AM CDT Maxwell Álvarez MD LAB - CHEMISTRY ORDE RABLES Performing Organization Address City/[facility]/ZIP Co de Phone Number [facility] [address] [place] [address], [facility] [phone] * PTT [facility] (09/23/2022 1:08 AM CDT) APTT 31.0 23.0 - 38.4 Seconds 09/23/2022 1:35 AM T [facility] Comment:Suggested therapeuti c range for full dose I.V. unfractionated heparin therapy for venous thromboembolism is 71 to 109 seconds. Blood BLOOD SPECIMEN / Unknown Venipuncture / Unknown 09/23/2022 1:08 AM CDT 09/23/2022 1:13 AM CDT Maxwell Álvarez MD LAB - COAGULATION OR DERABLES Performing Organization Address [facility]/ZIP Co de Phone Number [facility] [address] [place] [address], [place] [phone] * PT-INR [facility] (09/23/2022 1:08 AM CDT) Only the most recent of2 resultswithin the time period is included. PT 12.8 12.1 - 14.8 Seconds 09/23/2022 1:35 AM CDT [facility] INR 1.0 See Comment 09/23/2022 1:35 AM CDT [facility] Comment:The suggested therap eutic range for standard coumadin (warfarin) therapy is an INR of 2.0-3.0. For high-risk patients (Mechanical Mitral Valve Prosthesis, etc.), the suggested prophylactic therapeutic range is an INR of 2.5-3.5. Blood BLOOD SPECIMEN / Unknown Venipuncture / Unknown 09/23/2022 1:08 AM CDT 09/23/2022 1:13 AM CDT Maxwell Álvarez MD LAB - COAGULATION OR DERABLES [facility] [address] [place] [address], [facility] [phone] * CBC W AUTO DIFFERENTIAL (09/23/2022 1:08 AM CDT) Only the most recent of2 resultswithin the time period is included. WBC 5.3 3.5 - 10.5 10 3/uL 09/23/2022 1:23 AM [facility] RBC 4.69 4.30 - 5.70 10 6/uL 09/23/2022 1:23 AM [facility] Hemoglobin 14.4 12.0 - 17.6 g/dL 09/23/2022 1:23 AM [facility] Hematocrit 41.4 35.2 - 51.7 % 09/23/2022 1:23 AM [facility] MCV 88.3 80.7 - 98.3 fL 09/23/2022 1:23 AM [facility] MCH 30.7 26.7 - 34.0 pg 09/23/2022 1:23 AM [facility] MCHC 34.8 30.8 - 35.9 g/dL 09/23/2022 1:23 AM [facility] RDW-SD 39.3 36.0 - 50.0 fL 09/23/2022 1:23 AM [facility] RDW-CV 12.2 11.2 - 14.8 % 09/23/2022 1:23 AM [facility] Platelet Count 223 150 - 400 10 3/uL 09/23/2022 1:23 AM [facility] MPV 10.6 9.4 - 12.9 fL 09/23/2022 1:23 AM [facility] nRBC Absolute 0.00 0 10 3/uL 09/23/2022 1:23 AM [facility] nRBC Auto 0.0 0 /100 WBC 09/23/2022 1:23 AM [facility] Neutrophils % 51.7 35.0 - 70.0 % 09/23/2022 1:23 AM [facility] Lymphocytes % 33.9 20.0 - 43.0 % 09/23/2022 1:23 AM [facility] Monocytes % 8.1 5.0 - 13.0 % 09/23/2022 1:23 AM [facility] Eosinophils % 5.7 0.0 - 6.0 % 09/23/2022 1:23 AM [facility] Basophil % 0.4 0.0 - 2.0 % 09/23/2022 1:23 AM [facility] Neutrophils Absolute 2.73 1.60 - 7.00 10 3/uL 09/23/2022 1:23 AM [facility] Lymphocyte Absolute 1.79 1.10 - 3.90 10 3/uL 09/23/2022 1:23 AM [facility] Monocytes Absolute 0.43 0.26 - 1.07 10 3/uL 09/23/2022 1:23 AM [facility] Eosinophils Absolute 0.30 0.00 - 0.47 10 3/uL 09/23/2022 1:23 AM [facility] Basophils Absolute 0.02 0.00 - 0.08 10 3/uL 09/23/2022 1:23 AM [facility] Immature Granulocytes % 0.2 0.0 - 1.0 % 09/23/2022 1:23 AM [facility] Immature Granulocytes Absolute 0.01 09/23/2022 1:23 AM [facility] Blood BLOOD SPECIMEN / Unknown Venipuncture / Unknown 09/23/2022 1:08 AM CDT 09/23/2022 1:[address] [facility] Maxwell Álvarez MD LAB - HEMATOLOGY ORD ERABLES [facility] [address] [place] [address], [facility] [phone] * (ABNORMAL) COMPREHENSIVE METABOLIC PANEL (09/23/2022 1:[address] [facility]) Only the most recent of3 resultswithin the time period is included. BUN 24 7 - 26 mg/dL 09/23/2022 1:39 AM [facility] Creatinine 1.19(H) 0.71 - 1.16 mg/dL 09/23/2022 1:39 AM [facility] Sodium 137 136 - 145 mmol/L 09/23/2022 1:39 AM [facility] Potassium 4.0 3.5 - 4.5 mmol/L 09/23/2022 1:39 AM [facility] Chloride 107 98 - 107 mmol/L 09/23/2022 1:39 AM [facility] CO2 20(L) 22 - 29 mmol/L 09/23/2022 1:39 AM [facility] Glucose 103 70 - 115 mg/dL 09/23/2022 1:39 AM [facility] Calcium 9.4 8.4 - 10.2 mg/dL 09/23/2022 1:39 AM [facility] Protein Total 7.0 6.0 - 8.3 g/dL 09/23/2022 1:39 AM [facility] Albumin 3.9 3.4 - 5.0 g/dL 09/23/2022 1:39 AM [facility] Bilirubin Total 0.5 0.2 - 1.2 mg/dL 09/23/2022 1:39 AM [facility] Alkaline Phosphatase 73 40 - 150 U/L 09/23/2022 1:39 AM [facility] ALT 40 5 - 55 U/L 09/23/2022 1:39 AM [facility] AST 28 5 - 34 U/L 09/23/2022 1:39 AM [facility] Anion Gap 14 8 - 18 09/23/2022 1:39 AM [facility] BUN/Creatinine Ratio 20 7 - 23 09/23/2022 1:39 AM [facility] Osmolality Calculated 288 270 - 300 mOsm/kg 09/23/2022 1:39 AM CDT [facility] Albumin/Globulin Ratio 1.3 1.1 - 2.3 09/23/2022 1:39 AM CDT [facility] eGFR by CKD-EPI 77(L) >=90 mL/min/1.7 3 m2 09/23/2022 1:39 AM CDT [facility] Blood BLOOD SPECIMEN / Unknown Venipuncture / Unknown 09/23/2022 1:08 AM CDT 09/23/2022 1:13 AM CDT Maxwell Álvarez MD LAB - CHEMISTRY ALLA OROZCO [facility] [address] [place] [address], [facility] [phone] * CT BRAIN STROKE (09/23/2022 1:06 AM CDT) Only the most recent of2 resultswithin the time period is included. Anatomical Region Laterality Modality Head Computed Tomogra phy 09/23/2022 2:30 AM CDT Impressions 09/23/2022 9:52 AM CDT IMPRESSION: 1.No acute intracranial hemorrhage. 2.Chronic and age-indeterminate findings as outlined above. This study was dictated by residential sales associate Charlie Donato MD and reviewed and edited by the attending. Preliminary findings were communicated to the stroke team by [facility] at 3:20 AM eastern standard time on September 23, 2022. I, Genaro Kline MD have personally reviewed and interpreted this examination/study. > Interpreting Provider: Genaro Kline MD on 09/23/2022 9:52 AM Narrative 09/23/2022 9:[address] BRAIN STROKE EXAMINATION: Computed tomography (CT) of the head without contrast DATE: 09/23/2022 1:19 AM HISTORY: R53.1: Right sided weakness TECHNIQUE: CT of the head was performed without contrast according to standard protocol. COMPARISON: No prior study is available for comparison at the time of this dictation. FINDINGS: No acute intra- or extra-axial fluid collections are identified. The ventricles are of normal size, shape, and morphology. The basilar cisterns are patent. No mass effect or midline shift is seen. There are chronic infarcts in the bilateral basal ganglia, larger on the left side and extending along the left rowe radiata. Some of these infarcts, particularly along the left basal ganglia rowe radiata are new when compared to the prior CT from 11/12/2019, and likely represent age-indeterminate infarcts. The hull-white matter differentiation otherwise appears normal. Periventricular white matter hypoattenuation is indicative of chronic small vessel ischemic disease. There is vascular calcification of the carotid siphons. No acute calvarial fracture is identified. The orbits appear normal. There is mild paranasal sinus disease. Polypoid mucosal thickening and air-fluid level in the left maxillary sinus. Findings are nonspecific and could represent acute sinusitis in the appropriate clinical setting. Polypoid mucosal thickening or mucous retention cyst in the right maxillary sinus mild mucosal thickening in the remaining paranasal sinuses. The mastoid air cells are are grossly clear. No soft tissue abnormality is identified. Procedure Note Genaro Kline MD - 09/23/2022 CT BRAIN STROKE EXAMINATION: Computed tomography (CT) of the head without contrast DATE: 09/23/2022 1:19 AM HISTORY: R53.1: Right sided weakness TECHNIQUE: CT of the head was performed without contrast according to standard protocol. COMPARISON: No prior study is available for comparison at the time ofthis dictation. FINDINGS: No acute intra- or extra-axial fluid collections are identified. The ventricles are of normal size, shape, and morphology. The basilarcisterns are patent. No mass effect or midline shift is seen. There are chronic infarcts in the bilateral basal ganglia, larger on the left side and extending along the left rowe radiata. Some of these infarcts, particularly along the left basal ganglia rowe radiata are new when compared to the prior CT from 11/12/2019, and likely represent age-indeterminate infarcts. The hull-white matter differentiationotherwise appears normal. Periventricular white matter hypoattenuation isindicative of chronic small vessel ischemic disease. There is vascularcalcification of the carotid siphons. No acute calvarial fracture is identified. The orbits appear normal. There is mild paranasal sinus disease. Polypoid mucosal thickening and air-fluid level in the left maxillary sinus. Findings are nonspecific and could represent acute sinusitis in the appropriate clinical setting. Polypoid mucosal thickening or mucous retention cyst in the right maxillary sinus mild mucosal thickening inthe remaining paranasal sinuses. The mastoid air cells are are grosslyclear. No soft tissue abnormality is identified. IMPRESSION: 1.No acute intracranial hemorrhage. 2.Chronic and age-indeterminate findings as outlined above. This study was dictated by residential sales associate Charlie Donato MD and reviewed and edited by the attending. Preliminary findings were communicated to the stroke team by [facility] at 3:20 AM eastern standard time on September 23, 2022. IGenaro MD have personally reviewed and interpretedthis examination/study. > Interpreting Provider: Genaro Kline MD on 09/23/2022 9:52 AM Torin Brasher MD CT ORDERABLES * CARDIAC EKG ORDER (11/12/2019 2:10 PM CDT) Narrative 11/12/2019 2:10 PM CDT Ordered by an unspecified provider. Scanned Document CARDIAC SERVICES ORD ERABLES * ECHO COMPLETE W BUBBLE STUDY (11/11/2019 10:56 AM CDT) Anatomical Region Laterality Modality Chest Echo 11/11/2019 10:0 6 AM CDT Narrative Procedure Note Alli Chávez MD - 11/11/2019 Tom Botello MD ECHOCARDIOGRAPHY RAD IANT * TROPONIN I (11/11/2019 4:05 AM CDT) Only the most recent of3 resultswithin the time period is included. Troponin I 0.016 <0.032 ng/mL 11/11/2019 4:43 AM CDT [facility] Blood BLOOD SPECIMEN / Unknown Lab Venipuncture / Unknown 11/11/2019 4:05 AM CDT 11/11/2019 4:14 AM CDT Yogi Singleton MD LAB - CHEMISTRY ORDFish OROZCO [address] [address], [facility] [phone] * PHOSPHORUS BLOOD (11/11/2019 4:05 AM CDT) [facility] Phosphorus 3.2 2.3 - 4.7 mg/dL 11/11/2019 4:37 AM CDT [facility] Blood BLOOD SPECIMEN / Unknown Lab Venipuncture / Unknown 11/11/2019 4:05 AM CDT 11/11/2019 4:14 AM CDT Mariela Stevens MD LAB - CHEMISTRY CORINA ZUNIGA Performing Organization Address [facility]/ZIP Co de Phone Number [address] [address], [facility] [phone] * MAGNESIUM BLOOD (11/11/2019 4:05 AM CDT) [facility] Magnesium 1.9 1.6 - 2.6 mg/dL 11/11/2019 4:37 AM CDT [facility] Blood BLOOD SPECIMEN / Unknown Lab Venipuncture / Unknown 11/11/2019 4:05 AM CDT 11/11/2019 4:14 AM CDT Mariela Stevens MD LAB - CHEMISTRY ORD NADIA Performing Organization Address [facility]/ZIP Co de Phone Number [address] [address], [facility] [phone] * EKG 12-LEAD (11/10/2019 12:46 PM CDT) [facility] Ventricular Rate 86 BPM [facility] M[facility] Atrial Rate 86 BPM [facility] P-R Interval 150 ms [facility] QRS Duration ms 94 ms [facility] M[facility] Q-T Interval ms 368 ms [facility] QTC Calculation (Bezet) 440 ms [facility] MUSE Calculated P [place] 69 degrees SL MUSE Calculated R [place] -12 degrees SL MUSE Calculated T [place] -13 degrees SL MUSE Interpretation EKG NORMAL SINUS RHYTHM MODERATE VOLTAGE CRITERIA FOR LVH, MAY BE NORMAL VARIANT NONSPECIFIC ST ABNORMALITY ABNORMAL ECG NO PREVIOUS ECGS AVAILABLE Confirmed by fellow Lou Bettencourt ([id number]) on 11/12/2019 9:09:41 AM Confirmed by Matteo Mcintyre ([id number]) on 11/12/2019 10:24:08 PM [facility] M[facility] 11/10/2019 12:4 6 PM CDT 11/12/2019 10:24 PM CDT Yogi Singleton MD ECG ORDERABLES [facility] * HEMOGLOBIN A1C (11/10/2019 12:37 PM CDT) Hemoglobin A1c 5.9 4.4 - 6.3 % 11/11/2019 8:43 AM CDT [facility] Estimated Average Glucose 123 mg/dL 11/11/2019 8:43 AM CDT [facility] Comment: HbA1c Interpretation: Treatment target values recommended by ADA and other clinical organizations should be used to evaluate metabolic control in patients. Treatment Target Values: Normal : < 5.7% Pre-diabetes: 5.7-6.4% Diabetes: Equal to or greater than 6.5% Reference: [place] [employer] Standards of Care in Diabetes -2014 In patients 70 years and older consider HbA1c target range of 7.0-7.5% Reference: Diabetes Mellitus in Older People: Position Statement on behalf of the International Association of Gerontology and Geriatrics (IAGG), the Diabetes Working Republican for Older People (EDWPOP), and the International Task Force of Experts in Diabetes. Malick Stevens, et al. J [place] Medical [employer] Association. 2012 Test results diagnostic of diabetes should be repeated for confirmation. The Sebia Capillary 2 assay for the measurement of HbA1c is a National Glycohemoglobin Standardization Program (NGSP)certified method. Blood BLOOD SPECIMEN / Unknown Venipuncture / Unknown 11/10/2019 12:37 PM CDT 11/10/2019 12:46 PM CDT Tom Botello MD LAB - CHEMISTRY ALLA OROZCO Performing Organization Address City/[facility]/ZIP Co de Phone Number [facility] [address] [address] [phone] * TYPE + SCREEN PANEL (11/10/2019 12:15 PM CDT) Antibody Screen NEG 0 1:39 PM CDT [facility] ABO Rh O POS 11/10/2019 1:39 PM CDT [facility] Blood Bank BLOOD SPECIMEN / Unknown Venipuncture / Unknown 11/10/2019 12:15 PM CDT 11/10/2019 12:50 PM CDT Yogi Singleton MD LAB - BLOOD BANK ORD ERABLES Performing Organization Address [facility]/ZIP Co de Phone Number [facility] [address] * GLUCOSE - POINT OF CARE (AMB) SLU (03/29/2013 1:45 AM PALLETISER OPERATOR) Only the most recent of2 resultswithin the time period is included. Yogi Singleton MD LAB - POINT OF CARE ORDERABLES Performing Organization Address City/[facility]/ZIP Co de Phone Number [facility] * GLUCOSE ACCUCHECK (03/29/2013 1:45 AM PALLETISER OPERATOR) Glucose, Fingerstick 94 70 - 110 MG/DL [facility] Comment:PERFORMED BY: JUDY SHARP 03/29/2013 1:45 AM PALLETISER OPERATOR 03/29/2013 2:02 AM PALLETISER OPERATOR Yogi Singleton MD LAB - CHEMISTRY ORDFish [place] Performing Organization Address [facility] Co de Phone Number [facility] [address] [place] [address] Care Teams Criminalist Technician Relationship Specialty Start Date End Date Ck Palafox MD PCP - General 03/29/13
--- OUTSIDE RECORDS SUMMARY | 2024-06-21 14:41 | XMS_ITS | Clinical Summary ---
Author Organization [email or web address] Address [address] [place] [address] Care Team Providers Care Rn Intake Name Role Phone Ck Palafox MD Primary Care Provider Source Comments [email or web address],non-owned Affiliates and Associated Physician Practices is amultiple site organization consisting of ambulatory clinics and hospital sitesin [place], [place], [place] and [place]. This disclosure is being madepursuant to the Care Everywhere program and may not contain all information available regarding this patient. Last updated 18.[employer] Allergies No known active allergies Medications * [...] A VACCINE, ADULT 03/12/2019 INFLUENZA VACCINE 03/30/2019 Family History Medical History Relation Name Comments CVA Father Diabetes - Type 2 Father Relation Name Status Comments Father Social History Tobacco Use Types Packs/Day Years [...] and heating? Not hard at all 09/23/2022 [facility] [place] [facility] Occupat ional Health - Occupational Stress [...] place to sleep or slept in a assisted (including now)? No 09/23/2022 Sex and Gender Information Value Date Recorded Sex Assigned at Male 04/29/2023 9:07 PM BROADCAST OPERATIONS ENGINEER Gender Identity Male 04/29/2023 9:07 PM BROADCAST OPERATIONS ENGINEER Sexual Orientation Straight 04/29/2023 9: 07 PM BROADCAST OPERATIONS ENGINEER Last Filed Vital Signs Vital Sign Reading Time Taken Comments Blood Pressure 144/95 04/29/2023 8:31 PM BROADCAST OPERATIONS ENGINEER Pulse 85 04/29/2023 8:35 PM BROADCAST OPERATIONS ENGINEER Temperature 36.4 C (97.5 F) 04/29/2023 1:39 PM BROADCAST OPERATIONS ENGINEER Respiratory Rate 18 04/29/2023 8:35 PM BROADCAST OPERATIONS ENGINEER Oxygen Saturation 96% 04/29/2023 1:18 PM BROADCAST OPERATIONS ENGINEER Inhaled Oxygen Concentration - - Weight 86.2 kg (190 lb) 04/29/2023 1:18 PM BROADCAST OPERATIONS ENGINEER Height 172.7 cm (5' 8 ) 04/29/2023 1:18 PM BROADCAST OPERATIONS ENGINEER Body Mass Index 28.89 04/29/2023 1:18 PM BROADCAST OPERATIONS ENGINEER Plan of Treatment Health Maintenance Due Date Last Done Comments COLOGUARD (AGES 45-75) - COLON CA SCREENING 1978 COLON MONITORING 1978 COLONOSCOPY - COLON CA SCREENING 1978 CT COLONOGRAPHY - COLON CA SCREENING 1978 Colorectal Cancer Screening 1978 FIT - COLON CA SCREENING 1978 FLEX SIG - COLON CA SCREENING 1978 HIV SCREENING 1993 HEPATITIS C SCREENING 02/13/1996 DTAP/TDAP/TD VACCINES (1 - Tdap) 1997 HEPATITIS B VACCINE (1 of 3 - 19+ 3-dose series) 1997 COVID-19 VACCINE ( season) 2023 INFLUENZA VACCINE (#1) 2023 03/30/2019 DEPRESSION SCREENING 04/30/2024 SCREENING FOR DIABETES 09/25/2025 3, 09/25/2022, 09/25/2022, Additional history exists ZOSTER VACCINE (1 of 2) 02/18/2028 HIB VACCINE Aged Out No longer eligi ble based on patient's age to complete this topic HPV VACCINE Aged Out No longer eligi ble based on patient's age to complete this topic MENINGOCOCCAL (Group B) VACCINE Aged Out No longer eligible based on patient's age to complete this topic MENINGOCOCCAL VACCINE Aged Out No eldon linnette eligible based on patient's age to complete this topic PNEUMOCOCCAL VACCINE Aged Out No long er eligible based on patient's age to complete this topic Procedures Procedure Name Priority Date/Time Associated Diagnosis Comments BASIC METABOLIC PANEL (CALCIUM TOTAL) Routine 09/25/2022 1:55 AM CDT from Last 3 Months or Most Recently Relevant to Health Maintenance Results * BASIC METABOLIC PANEL (CALCIUM TOTAL) (09/25/2022 1:55 AM CDT) BUN 9 7 - 26 mg/dL 09/25/2022 3:26 AM [facility] Creatinine 0.87 0.71 - 1.16 mg/dL 09/25/2022 3:26 AM [facility] Sodium 140 136 - 145 mmol/L 09/25/2022 3:26 AM [facility] Potassium 3.8 3.5 - 4.5 mmol/L 09/25/2022 3:26 AM [facility] Chloride 106 98 - 107 mmol/L 09/25/2022 3:26 AM [facility] CO2 22 22 - 29 mmol/L 09/25/2022 3:26 AM [facility] Glucose 103 70 - 115 mg/dL 09/25/2022 3:26 AM [facility] Calcium 9.3 8.4 - 10.2 mg/dL 09/25/2022 3:26 AM CDT [facility] Anion Gap 16 8 - 18 09/25/2022 3:26 AM [facility] BUN/Creatinine Ratio 10 7 - 23 09/25/2022 3:26 AM [facility] Osmolality Calculated 289 270 - 300 mOsm/kg 09/25/2022 3:26 AM [facility] eGFR by CKD-EPI >90 >=90 mL/min/1.7 3 m2 09/25/2022 3:26 AM [facility] Blood BLOOD SPECIMEN / Unknown Lab Venipuncture / Unknown 09/25/2022 1:55 AM CDT 09/25/2022 2:55 AM CDT Nicolas Couch MD LAB - CHEMISTRY ORDERABLES [facility] [address] [place] [address], [facility] [phone] from Last 3 Months or Most Recently Relevant to Health Maintenance Advance Directives * Full Code (Latest Code Status on File) Date Activated Date Inactivated Comments 09/23/2022 6:58 AM 09/25/2022 8:15 PM * Full Code Date Activated Date Inactivated Comments 11/11/2019 1:28 AM 11/11/2019 6:17 PM * Full Code Date Activated Date Inactivated Comments 11/10/2019 12:24 PM 11/11/2019 1:28 AM Care Teams Rn Intake Relationship Specialty Start Date End Date Ck Palafox MD [facility] - General 03/29/13
--- OUTSIDE RECORDS SUMMARY | 2024-06-21 14:42 | XMS_ITS | Clinical Summary ---
Author Organization [facility] Healthcare Address [address] [place] [address] Care Team Providers Care Cherry Cutter Name Role Phone María Smith MD Primary Care Provider Allergies No known active allergies Medications acetaminophen [...] by mouth daily 30 tablet 04/01/20 24 025 Active aspirin 81 mg [...] mouth daily 30 tablet 11 04/01/20 24 Active Active Problems Problem Noted Date Diagnosed Date Chronic back pain 04/01/2024 Prediabetes 07/16/2023 Assessment & Plan (04/03/2024 8:00 PM MEAT APPRENTICE): Last A1C Lab Results Component Value Date HGBA1C 5.8 (H) 07/09/2023 Low carb diet Continue off medication Vitamin D deficiency 07/16/2023 Cocaine abuse 11/06/2022 Assessment & Plan (04/03/2024 8:00 PM MEAT APPRENTICE): Encouraged abstinence Cerebrovascular disease 11/06/2022 Assessment & [...] 01/21/2020 Assessment & Plan (04/03/2024 7:59 PM MEAT APPRENTICE): Counseled on tobacco cessation, health benefits of [...] quitting Assessment & Plan (05/26/2022 2:36 PM MEAT APPRENTICE): Encouraged smoking cessation Assessment & Plan (01/21/2020 11:35 AM CDT): Congratulated him on quitting smoking History of stroke 11/20/2019 Overview (11/20/2019): 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 Assessment & Plan (04/03/2024 7:59 PM MEAT APPRENTICE): Multiple TIAs followed by CVA resulting in [...] cessation Assessment & Plan (05/26/2022 2:34 PM MEAT APPRENTICE): No new neurologic symptoms However, he has [...] Hypertension Assessment & Plan (04/03/2024 7:59 PM MEAT APPRENTICE): Goal BP <130/80 BP not at goal [...] diet Assessment & Plan (05/26/2022 2:38 PM MEAT APPRENTICE): Goal BP <130/80 BP not at goal Will restart amlodipine and increase to 10 mg Hold lisinopril Encouraged low salt diet Assessment & Plan (01/21/2020 11:36 AM CDT): Well controlled Continue current medication Hyperlipidemia Assessment & Plan (04/03/2024 7:59 PM MEAT APPRENTICE): Lab Results Component Value Date LDLCALC See [...] statin Assessment & Plan (05/26/2022 2:39 PM MEAT APPRENTICE): No results found for: LDLCALC LDL goal <70 He has been out of medication Restart atorvastatin Assessment & Plan (01/21/2020 11:36 AM CDT): No side effects of medication Continue statin Resolved Problems Problem Noted Date Diagnosed Date Resolved Date Numbness 04/01/2024 04/01/2024 Smoker 04/01/2024 04/01/2024 Encounters Date Type Department Care Team Description 04/01/2024 3:30 PM MEAT APPRENTICE Office Visit [facility] Primary Care [address] [phone] María Smith MD History of stroke (Primary Dx); Cerebrovascular accident (CVA), unspecified mechanism (HCC); Mixed hyperlipidemia; Primary hypertension; Cocaine abuse (HCC); Tobacco dependence syndrome; Prediabetes; Vitamin D deficiency; Need for hepatitis B screening test from Last 3 Months Immunizations Immunization Administration Dates Next Due Hep A, Adult 03/12/2019 Influenza, Unspecified 03/31/2024(Deferr ed: Patient Refused),02/28/2023(Deferred: Patient Refused),03/30/2019 Medical History Medical History Date Comments Stroke (HCC) Hypertension Hyperlipidemia Family History Medical History Relation Name Comments Hypertension Father Relation Name Status Comments Father Social [...] on file Legal Sex Male 1:18 AM MEAT APPRENTICE Gender Identity Male 11/06/2022 9:55 AM CDT Sexual Orientation Not on file Obstetrics History Last Filed Vital Signs Vital Sign Reading Time Taken Comments Blood Pressure 160/94 04/01/2024 3:32 PM MEAT APPRENTICE Pulse 95 04/01/2024 3:32 PM MEAT APPRENTICE Temperature 37.3 C (99.1 F) 04/01/2024 3:32 PM MEAT APPRENTICE Respiratory Rate 20 04/01/2024 3:32 PM MEAT APPRENTICE Oxygen Saturation 99% 04/01/2024 3:32 PM MEAT APPRENTICE Inhaled Oxygen Concentration - - Weight 88.5 kg (195 lb 1.7 oz) 04/01/2024 3:32 P M MEAT APPRENTICE Height 175.3 cm (5' 9 ) 04/01/2024 3:32 PM MEAT APPRENTICE Body Mass Index 28.81 04/01/2024 3:32 PM MEAT APPRENTICE Plan of Treatment Health Maintenance Due Date Last Done Comments DTaP/Tdap/Td Vaccine (1 - Tdap) 1989 Hepatitis B Screening 02/18/1996 Regular Well Visit/Exam 18-64 02/18/1996 Pneumococcal vaccine <65 (1 of 2 - PCV) 1997 Depression Screening 04/01/2025 04/01/2024, 07/09/2023, 07/09/2023, Additional history exists Prostate Cancer Screening-PSA 07/08/2025 07/09/2023, 05/26/2022 Colon Cancer Screening-Colonoscopy 08/13/2026 Postponed from 1978 (Provider's clinical decision) Influenza Vaccine Discontinued 03/30/2019 Hepatitis C Screening Completed 10/31/2019, 013 HPV Vaccines Aged Out No longer eligi ble based [...] Male 0-6.20 80-150 years Male 0-6.20 The Monserrat PSA Total assay procedure was used. Results from different manufacturers or methods may not be comparable. Serial testing should be performed using the same method. Current interpretive data last revised 21. Blood 07/09/2023 11:3 1 AM CDT 07/09/2023 4:45 PM CDT us María Smith MD LAB [place]LOOD [id number] [address] [place] [address] * Hepatitis panel, acute (10/31/2019 2:11 AM CDT) HepBsAg NONREACT NONREACTIVE [facility] Comment: Siemens CentaurXP using MARY (chemiluminescent immunoassay) technology. NONREACTIVE: IgM antibodies to Hepatitis B Surface antigen not detected. REACTIVE: IgM antibodies to Hepatitis B Surface antigen detected. Reactive results will be confirmed by neutralization testing. HBsAb qn <3.10 mIU/mL [facility] Comment: Siemens CentaurXP using MARY (chemiluminescent immunoassay) technology. 9.99 IU/L or less.....NONREACTIVE: IgM antibodies to Hepatitis B Surface antibody are not detected. 10.00 IU/L or greater..REACTIVE: IgM antibodies to Hepatitis B Surface antibody are detected. Hep B core IgM NONREACT NONREACTIVE [facility]NOTE 2] Comment: Siemens CentaurXP using MARY (chemiluminescent immunoassay) technology. NONREACTIVE: IgM antibodies to Hepatitis B Core antigen not detected. EQUIVOCAL: IgM antibodies to Hepatitis B Core antigen may or may not be present. Obtain a new specimen and retest. REACTIVE: IgM antibodies to Hepatitis B Core antigen detected. Hep A IgM NONREACT NONREACTIVE [facility] Comment: Siemens CentaurXP using MARY (chemiluminescent immunoassay) technology. NONREACTIVE: IgM antibodies to Hepatitis A not detected. This does not exclude possibility of exposure to Hepatitis A or early acute infection. EQUIVOCAL:IgM antibodies to Hepatitis A may or may not be present. Suggest recollection and retest. REACTIVE: Antibodies to Hepatitis A detected. Hep C Ab NONREACT NONREACTIVE [facility] Comment: Siemens CentaurXP using MARY (chemiluminescent immunoassay) [...] AM CDT Narrative Resulting Agency Comment CORINA Tay Montes MD LAB MICROBIOLOGY - [employer] CLINICAL ORDERABLES Final Result [facility] [address] [place] [address], [facility] [phone] from Last 3 Months or Most Recently Relevant to Health Maintenance Insurance [employer] [facility] Care Teams Cherry Cutter Relationship Specialty Start Date End Date María Smith MD PCP - General Internal Medicine 11/04/19
[2024-06-21 14:45] VITALS: BP 167/92; PULSE 97; RESP 16; TEMP 36.8; O2SAT 100
--- OUTSIDE RECORDS SUMMARY | 2024-06-21 16:07 | XMS_ITS | Clinical Summary ---
Author Organization [facility] Address [address] [place] [address] Care Team Providers Care Rest Room Maid Name Role Phone Ck Palafox MD Primary Care Provider Source Comments [facility],non-owned Affiliates and Associated Physician Practices is amultiple site organization consisting of ambulatory clinics and hospital sitesin [place], [place]. This disclosure is being madepursuant to the Care Everywhere program and may not contain all information available regarding this patient. Last updated 18.[employer] Allergies No known active allergies Medications * [...] and heating? Not hard at all 09/23/2022 [facility] of Occupat ional Health - Occupational Stress [...] Sex Assigned at Male 04/29/2023 9:07 PM HEAT ENGINEERING TEACHER Gender Identity Male 04/29/2023 9:07 PM HEAT ENGINEERING TEACHER Sexual Orientation Straight 04/29/2023 9: 07 PM HEAT ENGINEERING TEACHER Last Filed Vital Signs Vital Sign Reading Time Taken Comments Blood Pressure 144/95 04/29/2023 8:31 PM HEAT ENGINEERING TEACHER Pulse 85 04/29/2023 8:35 PM HEAT ENGINEERING TEACHER Temperature 36.4 C (97.5 F) 04/29/2023 1:39 PM HEAT ENGINEERING TEACHER Respiratory Rate 18 04/29/2023 8:35 PM HEAT ENGINEERING TEACHER Oxygen Saturation 96% 04/29/2023 1:18 PM HEAT ENGINEERING TEACHER Inhaled Oxygen Concentration - - Weight 86.2 kg (190 lb) 04/29/2023 1:18 PM HEAT ENGINEERING TEACHER Height 172.7 cm (5' 8 ) 04/29/2023 1:18 PM HEAT ENGINEERING TEACHER Body Mass Index 28.89 04/29/2023 1:18 PM HEAT ENGINEERING TEACHER Plan of Treatment Health Maintenance Due Date [...] 7 - 26 mg/dL 09/25/2022 3:26 AM [facility] Creatinine 0.87 0.71 - 1.16 mg/dL 09/25/2022 3:[address] [facility] Sodium 140 136 - 145 mmol/L 09/25/2022 3:[address] [facility] Potassium 3.8 3.5 - 4.5 mmol/L 09/25/2022 3:[address] [facility] Chloride 106 98 - 107 mmol/L 09/25/2022 3:[address] [facility] CO2 22 22 - 29 mmol/L 09/25/2022 3:[address] [facility] Glucose 103 70 - 115 mg/dL 09/25/2022 3:26 AM [facility] Calcium 9.3 8.4 - 10.2 mg/dL 09/25/2022 3:26 AM CDT [facility] Anion Gap 16 8 - 18 09/25/2022 3:26 AM [facility] BUN/Creatinine Ratio 10 7 - 23 09/25/2022 3:26 AM [facility] Osmolality Calculated 289 270 - 300 mOsm/kg 09/25/2022 3:26 AM [facility] eGFR by CKD-EPI >90 >=90 mL/min/1.7 3 m2 09/25/2022 3:26 AM [facility] Blood BLOOD SPECIMEN / Unknown Lab Venipuncture / Unknown 09/25/2022 1:55 AM CDT 09/25/2022 2:55 AM CDT Nicolas Couch MD LAB - CHEMISTRY ORDERABLES [facility] [address] [place] [address], [facility] [phone] from Last 3 Months or Most Recently Relevant to Health Maintenance Advance Directives * Full Code (Latest Code Status on File) Date Activated Date Inactivated Comments 09/23/2022 6:58 AM 09/25/2022 8:15 PM * Full Code Date Activated Date Inactivated Comments 11/11/2019 1:28 AM 11/11/2019 6:17 PM * Full Code Date Activated Date Inactivated Comments 11/10/2019 12:24 PM 11/11/2019 1:28 AM Care Teams Rest Room Maid Relationship Specialty Start Date End Date Ck Palafox MD [facility] - General 03/29/13
--- OUTSIDE RECORDS SUMMARY | 2024-06-21 16:08 | XMS_ITS | Clinical Summary ---
Author Organization [facility] Address [address] [place] [address] Care Team Providers Care Detective Youth Bureau Name Role Phone María Smith MD Primary [...] on file Legal Sex Male 2:54 PM COOPERAGE SHOP SUPERVISOR Gender Identity Not on file Sexual Orientation Not on file Last Filed Vital Signs Vital Sign Reading Time Taken Comments Blood Pressure 143/92 07/02/2022 3:05 PM COOPERAGE SHOP SUPERVISOR Pulse 84 07/02/2022 3:05 PM COOPERAGE SHOP SUPERVISOR Temperature 37 C (98.6 F) 07/02/2022 3:05 PM COOPERAGE SHOP SUPERVISOR Respiratory Rate 18 07/02/2022 3:05 PM COOPERAGE SHOP SUPERVISOR Oxygen Saturation 98% 07/02/2022 3:05 PM COOPERAGE SHOP SUPERVISOR Inhaled Oxygen Concentration - - Weight 83.9 kg (185 lb) 07/02/2022 3:05 PM COOPERAGE SHOP SUPERVISOR Height 177.8 cm (5' 10 ) 07/02/2022 3:05 PM COOPERAGE SHOP SUPERVISOR Body Mass Index 26.54 07/02/2022 3:05 PM COOPERAGE SHOP SUPERVISOR Plan of Treatment Health Maintenance Due Date [...] patient's age to complete this topic Insurance [facility] Care Teams Detective Youth Bureau Relationship Specialty Start Date End Date Mar[place] [id number] [address] [facility] [address] [place] [address] PCP - General INTERNAL MEDICINE 07/02/22
--- OUTSIDE RECORDS SUMMARY | 2024-06-21 16:08 | XMS_ITS | Clinical Summary ---
Author Organization [facility] Healthcare Address [address] [place] [address] Care Team Providers Care Manager Pet Name Role Phone María Smith MD Primary [...] 07/16/2023 Assessment & Plan (04/03/2024 8:00 PM DAIRY MANAGER): Last A1C Lab Results Component Value Date HGBA1C 5.8 (H) 07/09/2023 Low carb diet Continue off medication Vitamin D deficiency 07/16/2023 Cocaine abuse 11/06/2022 Assessment & Plan (04/03/2024 8:00 PM DAIRY MANAGER): Encouraged abstinence Cerebrovascular disease 11/06/2022 Assessment & [...] 01/21/2020 Assessment & Plan (04/03/2024 7:59 PM DAIRY MANAGER): Counseled on tobacco cessation, health benefits of [...] quitting Assessment & Plan (05/26/2022 2:36 PM DAIRY MANAGER): Encouraged smoking cessation Assessment & Plan (01/21/2020 11:35 AM CDT): Congratulated him on quitting smoking History of stroke 11/20/2019 Overview (11/20/2019): 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 Assessment & Plan (04/03/2024 7:59 PM DAIRY MANAGER): Multiple TIAs followed by CVA resulting in [...] cessation Assessment & Plan (05/26/2022 2:34 PM DAIRY MANAGER): No new neurologic symptoms However, he has [...] Hypertension Assessment & Plan (04/03/2024 7:59 PM DAIRY MANAGER): Goal BP <130/80 BP not at goal [...] diet Assessment & Plan (05/26/2022 2:38 PM DAIRY MANAGER): Goal BP <130/80 BP not at goal Will restart amlodipine and increase to 10 mg Hold lisinopril Encouraged low salt diet Assessment & Plan (01/21/2020 11:36 AM CDT): Well controlled Continue current medication Hyperlipidemia Assessment & Plan (04/03/2024 7:59 PM DAIRY MANAGER): Lab Results Component Value Date LDLCALC See [...] statin Assessment & Plan (05/26/2022 2:39 PM DAIRY MANAGER): No results found for: LDLCALC LDL goal <70 He has been out of medication Restart atorvastatin Assessment & Plan (01/21/2020 11:36 AM CDT): No side effects of medication Continue statin Resolved Problems Problem Noted Date Diagnosed Date Resolved Date Numbness 04/01/2024 04/01/2024 Smoker 04/01/2024 04/01/2024 Encounters Date Type Department Care Team Description 04/01/2024 3:30 PM DAIRY MANAGER Office Visit [facility] Primary Care [address] [address] María Smith MD History of [...] on file Legal Sex Male 1:18 AM DAIRY MANAGER Gender Identity Male 11/06/2022 9:55 AM CDT Sexual Orientation Not on file Obstetrics History Last Filed Vital Signs Vital Sign Reading Time Taken Comments Blood Pressure 160/94 04/01/2024 3:32 PM DAIRY MANAGER Pulse 95 04/01/2024 3:32 PM DAIRY MANAGER Temperature 37.3 C (99.1 F) 04/01/2024 3:32 PM DAIRY MANAGER Respiratory Rate 20 04/01/2024 3:32 PM DAIRY MANAGER Oxygen Saturation 99% 04/01/2024 3:32 PM DAIRY MANAGER Inhaled Oxygen Concentration - - Weight 88.5 kg (195 lb 1.7 oz) 04/01/2024 3:32 P M DAIRY MANAGER Height 175.3 cm (5' 9 ) 04/01/2024 3:32 PM DAIRY MANAGER Body Mass Index 28.81 04/01/2024 3:32 PM DAIRY MANAGER Plan of Treatment Health Maintenance Due Date [...] LAB [place]LO[id number] [address] Department [place] [address] * Hepatitis panel, acute (10/31/2019 2:11 AM CDT) HepBsAg NONREACT NONREACTIVE [facility] Comment: Siemens CentaurXP using MARY (chemiluminescent immunoassay) technology. NONREACTIVE: IgM antibodies to Hepatitis B Surface antigen not detected. REACTIVE: IgM antibodies to Hepatitis B Surface antigen detected. Reactive results will be confirmed by neutralization testing. HBsAb qn <3.10 mIU/mL [facility] Comment: Siemens CentaurXP using MARY (chemiluminescent immunoassay) technology. 9.99 IU/L or less.....NONREACTIVE: IgM antibodies to Hepatitis B Surface antibody are not detected. 10.00 IU/L or greater..REACTIVE: IgM antibodies to Hepatitis B Surface antibody are detected. Hep B core IgM NONREACT NONREACTIVE [facility] Comment: Siemens CentaurXP using MARY (chemiluminescent immunoassay) technology. NONREACTIVE: IgM antibodies to Hepatitis B Core antigen not detected. EQUIVOCAL: IgM antibodies to Hepatitis B Core antigen may or may not be present. Obtain a new specimen and retest. REACTIVE: IgM antibodies to Hepatitis B Core antigen detected. Hep A IgM NONREACT NONREACTIVE [facility] Comment: Siemens CentaurXP using MARY (chemiluminescent immunoassay) technology. NONREACTIVE: IgM antibodies to Hepatitis A not detected. This does not exclude possibility of exposure to Hepatitis A or early acute infection. EQUIVOCAL:IgM antibodies to Hepatitis A may or may not be present. Suggest recollection and retest. REACTIVE: Antibodies to Hepatitis A detected. Hep C Ab NONREACT NONREACTIVE [facility] Comment: Siemens CentaurXP using MARY (chemiluminescent immunoassay) [...] CORINA Tay Montes MD LAB MICROBIOLOGY - [facility] ORDERABLES Final Result [facility] [address] [place] [address], [facility] [phone] from Last 3 Months or Most Recently Relevant to Health Maintenance Insurance AETNA [facility] Care Teams Manager Pet Relationship Specialty Start Date End Date María Smith MD PCP - General Internal Medicine 11/04/19
--- OUTSIDE RECORDS SUMMARY | 2024-06-21 16:08 | XMS_ITS | Patient Health Summary ---
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 Duration ms 94 ms [facility] MUSE Q-T Interval ms 368 ms [facility] MUSE QTC Calculation (Bezet) 440 ms [facility] MUSE Calculated P [place] 69 degrees SL MUSE Calculated R [place] -12 degrees SL MUSE Calculated T [place] -13 degrees SL MUSE Interpretation EKG NORMAL SINUS RHYTHM MODERATE VOLTAGE CRITERIA FOR LVH, MAY BE NORMAL VARIANT NONSPECIFIC ST ABNORMALITY ABNORMAL ECG NO PREVIOUS ECGS AVAILABLE Confirmed by fellow Lou Bettencourt ([id number]) on 11/12/2019 9:09:41 AM Confirmed by Matteo Mcintyre ([id number]) on 11/12/2019 10:24:08 PM [facility] MUSE 11/10/2019 12:4 6 PM CDT 11/12/2019 10:24 PM CDT Yogi Singleton MD ECG ORDERABLES [facility] * HEMOGLOBIN A1C (11/10/2019 12:37 PM CDT) Hemoglobin A1c 5.9 4.4 - 6.3 % 11/11/2019 8:43 AM CDT [facility] Estimated Average Glucose 123 mg/dL 11/11/2019 8:43 AM CDT [facility] Comment: HbA1c Interpretation: Treatment target values recommended by ADA and other clinical organizations should be used to evaluate metabolic control in patients. Treatment Target Values: Normal : < 5.7% Pre-diabetes: 5.7-6.4% Diabetes: Equal to or greater than 6.5% Reference: [place] Diabetes Association Standards of Care in Diabetes -2014 In patients 70 years and older consider HbA1c target range of 7.0-7.5% Reference: Diabetes Mellitus in Older People: Position Statement on behalf of the International Association of Gerontology and Geriatrics (IAGG), the Diabetes Working Green Party for Older People (EDWPOP), and the International Task Force of Experts in Diabetes. Malick Stevens, et al. J [employer] Association. 2012 Test results diagnostic of diabetes should be repeated for confirmation. The Sebia Capillary 2 assay for the measurement of HbA1c is a National Glycohemoglobin Standardization Program (NGSP)certified method. Blood BLOOD SPECIMEN / Unknown Venipuncture / Unknown 11/10/2019 12:37 PM CDT 11/10/2019 12:46 PM CDT Tom Botello MD LAB - CHEMISTRY ALLA OROZCO Performing Organization Address City/[facility]/ZIP Co de Phone Number [facility] [address] [address] [phone] * TYPE + SCREEN PANEL (11/10/2019 12:15 PM CDT) Antibody Screen NEG 0 1:39 PM CDT [facility] ABO Rh O POS 11/10/2019 1:39 PM CDT [facility] Blood Bank BLOOD SPECIMEN / Unknown Venipuncture / Unknown 11/10/2019 12:15 PM CDT 11/10/2019 12:50 PM CDT Yogi Singleton MD LAB - BLOOD BANK ORD ERABLES Performing Organization Address [facility]/ZIP Co de Phone Number [facility] [address] * GLUCOSE - POINT OF CARE (AMB) [facility] (03/29/2013 1:45 AM CONSULTANT TECHNOLOGY) Only the most recent of2 resultswithin the time period is included. Yogi Singleton MD LAB - POINT OF CARE ORDERABLES Performing Organization Address City/[facility]/ZIP Co de Phone Number [facility] * GLUCOSE ACCUCHECK (03/29/2013 1:45 AM CONSULTANT TECHNOLOGY) Glucose, Fingerstick 94 70 - 110 MG/DL [facility] Comment:PERFORMED BY: JUDY SHARP 03/29/2013 1:45 AM CONSULT[employer] TECHN[employer]Y 03/29/2013 2:02 AM CONSULTANT TECHNOLOGY Yogi Singleton MD LAB - CHEMISTRY ORDFish [place] Performing Organization Address [facility] Co de Phone Number [facility] [address] [place] [address] Care Teams Supervisor Final Relationship Specialty Start Date End Date Ck Palafox MD PCP - General 03/29/13
--- OUTSIDE RECORDS SUMMARY | 2024-06-21 16:08 | XMS_ITS | Referral Summary ---
Author Organization [facility] Address [address] [place] [address] Care Team Providers Care Programmer Analyst Name Role Phone Ck Palafox MD Primary Care Provider Source Comments [facility],non-owned Affiliates and Associated Physician Practices is amultiple site organization consisting of ambulatory clinics and hospital sitesin [place], [place], [place] and [place]. This disclosure is being madepursuant to the Care Everywhere program and may not contain all information available regarding this patient. Last updated 18.[employer] Allergies No known active allergies Medications * [...] and heating? Not hard at all 09/23/2022 [facility] - Occupational Stress [...] place to sleep or slept in a fci (including now)? No 09/23/2022 Sex and Gender Information Value Date Recorded Sex Assigned at Male 04/29/2023 9:07 PM CUSTOMER SERVICES COORDINATOR Gender Identity Male 04/29/2023 9:07 PM CUSTOMER SERVICES COORDINATOR Sexual Orientation Straight 04/29/2023 9: 07 PM CUSTOMER SERVICES COORDINATOR Last Filed Vital Signs Vital Sign Reading Time Taken Comments Blood Pressure 144/95 04/29/2023 8:31 PM CUSTOMER SERVICES COORDINATOR Pulse 85 04/29/2023 8:35 PM CUSTOMER SERVICES COORDINATOR Temperature 36.4 C (97.5 F) 04/29/2023 1:39 PM CUSTOMER SERVICES COORDINATOR Respiratory Rate 18 04/29/2023 8:35 PM CUSTOMER SERVICES COORDINATOR Oxygen Saturation 96% 04/29/2023 1:18 PM CUSTOMER SERVICES COORDINATOR Inhaled Oxygen Concentration - - Weight 86.2 kg (190 lb) 04/29/2023 1:18 PM CUSTOMER SERVICES COORDINATOR Height 172.7 cm (5' 8 ) 04/29/2023 1:18 PM CUSTOMER SERVICES COORDINATOR Body Mass Index 28.89 04/29/2023 1:18 PM CUSTOMER SERVICES COORDINATOR Functional Status Functional Status Response Date of [...] 7 - 26 mg/dL 09/25/2022 3:26 AM [facility] Creatinine 0.87 0.71 - 1.16 mg/dL 09/25/2022 3:26 AM [facility] Sodium 140 136 - 145 mmol/L 09/25/2022 3:26 AM [facility] Potassium 3.8 3.5 - 4.5 mmol/L 09/25/2022 3:26 AM [facility] Chloride 106 98 - 107 mmol/L 09/25/2022 3:26 AM [facility] CO2 22 22 - 29 mmol/L 09/25/2022 3:26 AM [facility] Glucose 103 70 - 115 mg/dL 09/25/2022 3:26 AM [facility] Calcium 9.3 8.4 - 10.2 mg/dL 09/25/2022 3:26 AM [facility] Anion Gap 16 8 - 18 09/25/2022 3:26 AM [facility] BUN/Creatinine Ratio 10 7 - 23 09/25/2022 3:26 AM [facility] Osmolality Calculated 289 270 - 300 mOsm/kg 09/25/2022 3:26 AM [facility] eGFR by CKD-EPI >90 >=90 mL/min/1.7 3 m2 09/25/2022 3:26 AM [facility] Blood BLOOD SPECIMEN / Unknown Lab Venipuncture / Unknown 09/25/2022 1:55 AM CDT 09/25/2022 2:55 AM CDT Nicolas Couch MD LAB - CHEMISTRY ORDERABLES [facility] [address] [place] [phone], [facility] [phone] from Last 3 Months or Most Recently Relevant to Health Maintenance Advance Directives * Full Code (Latest Code Status on File) Date Activated Date Inactivated Comments 09/23/2022 6:58 AM 09/25/2022 8:15 PM * Full Code Date Activated Date Inactivated Comments 11/11/2019 1:28 AM 11/11/2019 6:17 PM * Full Code Date Activated Date Inactivated Comments 11/10/2019 12:24 PM 11/11/2019 1:28 AM Care Teams Programmer Analyst Relationship Specialty Start Date End Date Ck Palafox MD PCP - General 03/29/13
--- OUTSIDE RECORDS SUMMARY | 2024-06-21 16:08 | XMS_ITS | Referral Summary ---
Author Organization [facility] Healthcare Address [address] [place] [address] Care Team Providers Care Dado Operator Name Role Phone María Smith MD Primary Care Provider Encounters Date Type Department Care Team Description 04/01/2024 3:30 PM PROGRAM MANAGEMENT SPECIALIST Office Visit [facility] Primary Care [address] [address] María Smith MD History of [...] 07/16/2023 Assessment & Plan (04/03/2024 8:00 PM PROGRAM MANAGEMENT SPECIALIST): Last A1C Lab Results Component Value Date HGBA1C 5.8 (H) 07/09/2023 Low carb diet Continue off medication Vitamin D deficiency 07/16/2023 Cocaine abuse 11/06/2022 Assessment & Plan (04/03/2024 8:00 PM PROGRAM MANAGEMENT SPECIALIST): Encouraged abstinence Cerebrovascular disease 11/06/2022 Assessment & [...] 01/21/2020 Assessment & Plan (04/03/2024 7:59 PM PROGRAM MANAGEMENT SPECIALIST): Counseled on tobacco cessation, health benefits of [...] quitting Assessment & Plan (05/26/2022 2:36 PM PROGRAM MANAGEMENT SPECIALIST): Encouraged smoking cessation Assessment & Plan (01/21/2020 11:35 AM CDT): Congratulated him on quitting smoking History of stroke 11/20/2019 Overview (11/20/2019): 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 Assessment & Plan (04/03/2024 7:59 PM PROGRAM MANAGEMENT SPECIALIST): Multiple TIAs followed by CVA resulting in [...] cessation Assessment & Plan (05/26/2022 2:34 PM PROGRAM MANAGEMENT SPECIALIST): No new neurologic symptoms However, he has [...] Hypertension Assessment & Plan (04/03/2024 7:59 PM PROGRAM MANAGEMENT SPECIALIST): Goal BP <130/80 BP not at goal [...] diet Assessment & Plan (05/26/2022 2:38 PM PROGRAM MANAGEMENT SPECIALIST): Goal BP <130/80 BP not at goal Will restart amlodipine and increase to 10 mg Hold lisinopril Encouraged low salt diet Assessment & Plan (01/21/2020 11:36 AM CDT): Well controlled Continue current medication Hyperlipidemia Assessment & Plan (04/03/2024 7:59 PM PROGRAM MANAGEMENT SPECIALIST): Lab Results Component Value Date LDLCALC See [...] statin Assessment & Plan (05/26/2022 2:39 PM PROGRAM MANAGEMENT SPECIALIST): No results found for: LDLCALC LDL goal [...] on file Legal Sex Male 1:18 AM PROGRAM MANAGEMENT SPECIALIST Gender Identity Male 11/06/2022 9:55 AM CDT Sexual Orientation Not on file Last Filed Vital Signs Vital Sign Reading Time Taken Comments Blood Pressure 160/94 04/01/2024 3:32 PM PROGRAM MANAGEMENT SPECIALIST Pulse 95 04/01/2024 3:32 PM PROGRAM MANAGEMENT SPECIALIST Temperature 37.3 C (99.1 F) 04/01/2024 3:32 PM PROGRAM MANAGEMENT SPECIALIST Respiratory Rate 20 04/01/2024 3:32 PM PROGRAM MANAGEMENT SPECIALIST Oxygen Saturation 99% 04/01/2024 3:32 PM PROGRAM MANAGEMENT SPECIALIST Inhaled Oxygen Concentration - - Weight 88.5 kg (195 lb 1.7 oz) 04/01/2024 3:32 P M PROGRAM MANAGEMENT SPECIALIST Height 175.3 cm (5' 9 ) 04/01/2024 3:32 PM PROGRAM MANAGEMENT SPECIALIST Body Mass Index 28.81 04/01/2024 3:32 PM PROGRAM MANAGEMENT SPECIALIST Plan of Treatment Not on file Procedures [...] LAB [place]LOOD [id number] [address] [place] [address] * Hepatitis panel, acute (10/31/2019 2:11 AM CDT) HepBsAg NONREACT NONREACTIVE [facility] Comment: Siemens CentaurXP using MARY (chemiluminescent immunoassay) technology. NONREACTIVE: IgM antibodies to Hepatitis B Surface antigen not detected. REACTIVE: IgM antibodies to Hepatitis B Surface antigen detected. Reactive results will be confirmed by neutralization testing. HBsAb qn <3.10 mIU/mL [facility] Comment: Siemens CentaurXP using MARY (chemiluminescent immunoassay) [...] antigen detected. Hep A IgM NONREACT NONREACTIVE [facility] Comment: Siemens CentaurXP using MARY (chemiluminescent immunoassay) technology. NONREACTIVE: IgM antibodies to Hepatitis A not detected. This does not exclude possibility of exposure to Hepatitis A or early acute infection. EQUIVOCAL:IgM antibodies to Hepatitis A may or may not be present. Suggest recollection and retest. REACTIVE: Antibodies to Hepatitis A detected. Hep C Ab NONREACT NONREACTIVE [facility] Comment: Siemens CentaurXP using MARY (chemiluminescent immunoassay) [...] MICROBIOLOGY - GE NERAL ORDERABLES Final Result [facility] Speak With Me [address] [place] [address], [facility] [phone] from Last 3 Months or Most Recently Relevant to Health Maintenance Insurance [employer] [facility] Care Teams Dado Operator Relationship Specialty Start Date End Date María Smith MD PCP - General Internal Medicine 11/04/19
--- NOTE | 2024-06-21 16:10 | ED_ITS ---
HPI - General Adult General Chief complaint: Unspecified Stated complaint: CHEST PAIN Time Seen by Provider: 06/21/24 15:57 Source: patient Mode of arrival: ambulatory Limitations: no limitations History of Present Illness HPI narrative: Patient is a 44 y/o male who presents to the ED with c/o CP. Patient reports having pain in his midsternal chest after eating. States sx's first began last night while he was eating a [employer] sandwich in bed. States pain lasted for approximately 10 minutes before resolving. He denies any pain when ambulating or with exertion. He attempted to eat pizza today and developed recurrent pain after eating his 2nd slice of pizza. States pain again lasted for approximately 10 minutes before resolving. Denies current pain. Denies abdominal pain. Denies nausea or vomiting. Denies diarrhea constipation. States last bowel movement was a couple of days ago. Denies rectal bleeding or melena. Denies shortness of breath. No previous cardiac issues. Does not take anything for acid reflux. Related Data Allergies Allergy/AdvReac Type Severity Reaction Status Date / Time No Known Allergies Allergy Verified 08/08/13 00:05 Review of Systems 2 Review of Systems: All systems reviewed & are unremarkable except as noted in HPI. All systems reviewed & are unremarkable except as noted in HPI and below Exam 2 Narrative: GENERAL: Well appearing, obese with BMI of 31.6, non-toxic, in no acute distress. HEAD: Normocephalic, atraumatic. RESPIRATORY: Airway patent, respirations nonlabored. Clear to auscultation bilaterally, no rales, rhonchi, wheezing. CARDIOVASCULAR: Regular rate and rhythm without murmurs, rubs, or gallops. ABDOMINAL: Soft, no tenderness throughout abdomen, nondistended. Normoactive BS. MUSCULOSKELETAL: Moves all extremities. No gross deformities. No chest wall tenderness to palpation. SKIN: Warm, dry, normal color. NEURO: A&O X3. Speech clear. PSYCHIATRIC: Appropriate mood and affect. Normal interaction. Course Vital Signs Vital signs: Vital Signs Temperature 98.2 F 06/21/24 14:45 Pulse Rate 97 06/21/24 14:45 Respiratory Rate 16 06/21/24 14:45 Blood Pressure 167/92 H 06/21/24 14:45 Pulse Oximetry 100 06/21/24 14:45 Oxygen Delivery Room Air 06/21/24 14:45 Temperature 98 F 06/21/24 18:30 Pulse Rate 95 06/21/24 18:30 Respiratory Rate 20 06/21/24 18:30 Blood Pressure 165/96 H 06/21/24 18:30 Pulse Oximetry 100 06/21/24 18:30 Oxygen Delivery Room Air 06/21/24 16:45 Medical Decision Making MDM Narrative Medical decision making narrative: Patient presents to ED with report of midsternal chest pain that began last night, directly associated with eating. Vital signs are stable upon arrival. Patient was mildly hypertensive here. He does have history of hypertension and states he has not taken his normal medications today. Has to sheepskin pickler a new Rx from the pharmacy which he is yet to do so today. He does have a refill at the pharmacy ready for him. Basic laboratory studies are unremarkable. No significant electrolyte abnormalities. Normal LFTs and lipase. Patient without any abdominal tenderness on exam. EKG without concerning ischemic changes. Troponin undetectable. Chest x-ray is clear. HEART score = 3 based on age, RFs (BMI, HTN, HLD) I have low suspicion for ACS at this time. Discussed high likelihood of symptoms related to esophagitis/gastritis/acid reflux. Discussed possibility of PUD. Patient given GI cocktail in the ED with improvement. Feel he is safe for discharge home. Will start patient on omeprazole. Also discussed lifestyle management for reflux. Recommended close follow-up with PCP for further evaluation. Patient in agreement with plan. Feeling comfortable discharge home. Able to tolerate p.o. intake. Discharged in stable condition. Medical Records Medical records reviewed: Yes I reviewed the external patient's medical records. Vital Signs Vital Signs: Vital Signs Temperature 98.2 F 06/21/24 14:45 Pulse Rate 97 06/21/24 14:45 Respiratory Rate 16 06/21/24 14:45 Blood Pressure 167/92 H 06/21/24 14:45 Pulse Oximetry 100 06/21/24 14:45 Oxygen Delivery Room Air 06/21/24 14:45 Temperature 98 F 06/21/24 18:30 Pulse Rate 95 06/21/24 18:30 Respiratory Rate 20 06/21/24 18:30 Blood Pressure 165/96 H 06/21/24 18:30 Pulse Oximetry 100 06/21/24 18:30 Oxygen Delivery Room Air 06/21/24 16:45 Lab Data Lab results reviewed: Yes I reviewed the patient's lab results. 06/21/24 16:35 06/21/24 16:35 Labs: Lab Results 06/21/24 Range/Units 16:35 WBC 3.8 L (4.5-10.0) K/mm3 RBC 4.74 (4.6-6.20) M/mm3 Hgb 14.5 (14.0-18.0) g/dL Hct 41.6 L (42.0-52.0) % MCV 87.8 (80-100) fl MCH 30.6 (26-34) pg MCHC 34.9 (32-36) g/dl RDW 12.4 (11.5-14.5) % Plt Count 207 (150-375) k/mm3 MPV 10.5 H (7.4-10.4) fl Immature Gran % (Auto) 0.0 (0-0.5) % Neut % (Auto) 64.8 (45.5-73.1) % Lymph % (Auto) 24.1 (18.3-44.2) % Weld % (Auto) 9.5 H (2.6-8.5) % Eos % (Auto) 1.3 (0-4.4) % Baso % (Auto) 0.3 (0.2-1.2) % Lymph # (Auto) 0.91 (0.9-3.2) K/mm3 Weld # (Auto) 0.4 (0.1-0.6) K/mm3 Eos # (Auto) 0.1 (0-0.3) K/mm3 Baso # (Auto) 0.0 (0.0-0.1) K/mm3 Abs Immat Gran (auto) 0.00 (0.00-0.031) K/mm3 Absolute Neuts (auto) 2.4 (1.3-6.7) K/mm3 Absolute Nucleated RBC 0.000 (0.0-0.012) K/mm3 Nucleated RBC % 0.0 (0.0-0.2) % PT 13.0 (11.1-14.7) Seconds INR 1.0 APTT 27.7 (22.3-36.8) Seconds Sodium 140 (137-145) mmol/L Potassium 3.7 (3.4-5.0) mmol/L Chloride 106 (98-107) mmol/L Carbon Dioxide 22 (22-30) mmol/L Anion Gap 12 (4-12) mmol/L BUN 12 (9-20) mg/dL Creatinine 0.87 (0.7-1.3) mg/dL Estim Creat Clear Calc 107 ml/min Estimated GFR > 60 (59 - ) Glucose 131 H (65-110) mg/dL Calcium 9.8 (8.4-10.2) mg/dL Total Bilirubin 1.0 (0.2-1.3) mg/dL AST 38 (17-59) U/L ALT 46 (6-50) U/L Alkaline Phosphatase 74 (38-126) U/L Troponin I < 0.012 (0.000-0.034) ng/mL Total Protein 7.0 (6.3-8.2) g/dL Albumin 4.3 (3.5-5.1) g/dL Lipase 105 (23-300) U/L Imaging Data Attestation: I personally reviewed and interpreted this imaging study as follows: Radiologist's impression: ITS Impressions Chest X-Ray 06/21/24 17:06 IMPRESSION: 1. No acute cardiopulmonary disease. ECG Data EKG #1: Attestation: I personally reviewed and interpreted this ECG as follows: ECG completion date: 06/21/24 ECG completion time: 14:45 EKG Interpretation: normal rate (90), sinus rhythm and non-specific ST changes Discharge Plan Discharge Clinical Impression: Atypical chest pain, Esophagitis Patient Disposition: Home, Self-Care Condition: Stable Instructions: Antibiotic Form, Diet for Stomach Ulcers and Gastritis (ED), GERD (Gastroesophageal Reflux Disease) (ED), Esophagitis (ED) Additional Instructions: Take omeprazole daily as prescribed for acid reflux. Recommend avoiding foods that are very greasy, spicy, fatty, acidic. Avoid lying flat immediately after eating. Recommend sitting upright for at least 30 minutes after eating. Drink plenty of water. Eat slowly and chew food thoroughly. Follow-up closely with your primary care doctor for further evaluation. Return to the ED if you experience worsening or severe symptoms, severe chest pain, difficulty breathing or feeling short of breath, unable to keep down food or drink, fevers, or any other symptoms of concern. Patient Language: Turkmen Prescriptions: New omeprazole 10 mg capsule,delayed release(DR/EC) 10 mg PO DAILY Qty: 30 0RF Follow-up/Referrals: PHYSICIAN,FILTER HELPER [Primary Care Provider] - Time of Disposition: 18:18 Quality HEART score for chest pain patients History: slightly suspicious ECG: normal Age: > 45 and < 65 years Risk factors: > or = to 3 risk factors of atherosclerotic disease Troponin: < or = to 1x normal limit Heart score: 3
[2024-06-21 16:16] VITALS: BP 164/92; PULSE 92; RESP 24
[2024-06-21 16:31] VITALS: BP 167/109; PULSE 97; RESP 17
[2024-06-21 16:40] LABS: Basophils Percent Auto 0.3 % (0.2-1.2); Eosinophils Absolute Auto 0.1 K/mm3 (0-0.3); Eosinophils Percent Auto 1.3 % (0-4.4); Hematocrit 41.6 % (42.0-52.0); Hemoglobin 14.5 g/dL (14.0-18.0); Lymphocytes Absolute Auto 0.91 K/mm3 (0.9-3.2); Lymphocytes Percent Auto 24.1 % (18.3-44.2); Mean Corpuscular HGB Conc 34.9 g/dl (32-36); Mean Corpuscular Hemoglobin 30.6 pg (26-34); Mean Corpuscular Volume 87.8 fl (80-100); Mean Platelet Volume 10.5 fl (7.4-10.4); Monocytes Absolute Auto 0.4 K/mm3 (0.1-0.6); Monocytes Percent Auto 9.5 % (2.6-8.5); Neutrophils Absolute Auto 2.4 K/mm3 (1.3-6.7); Neutrophils Percent Auto 64.8 % (45.5-73.1); Platelet Count Result 207 k/mm3 (150-375); Red Blood Count 4.74 M/mm3 (4.6-6.20); Red Cell Distribution Width 12.4 % (11.5-14.5); White Blood Count 3.8 K/mm3 (4.5-10.0)
[2024-06-21] MEDS: BELLADONNA ALK/PHENOB ELIX 10 ML, MAG HYDROX/ALUMINUM HYD/SIMETH 30 ML, LIDOCAINE 2% VI... PO (16:42)
[2024-06-21 16:45] VITALS: BP 184/123; PULSE 94; RESP 20; O2SAT 97
[2024-06-21 16:50] VITALS: PULSE 89
[2024-06-21 16:51] LABS: Alanine Aminotransferase 46 U/L (6-50); Albumin Level 4.3 g/dL (3.5-5.1); Alkaline Phosphatase 74 U/L (38-126); Anion Gap 12 mmol/L (4-12); Aspartate Amino Transferase 38 U/L (17-59); Blood Urea Nitrogen 12 mg/dL (9-20); Calcium 9.8 mg/dL (8.4-10.2); Carbon Dioxide 22 mmol/L (22-30); Chloride 106 mmol/L (98-107); Estimated CRCL calculation 107 ml/min; Estimated Glomerular Filt Rate > 60; Glucose 131 mg/dL (65-110); Lipase 105 U/L (23-300); Potassium 3.7 mmol/L (3.4-5.0); Sodium 140 mmol/L (137-145)
[2024-06-21 16:53] LABS: Partial Thromboplastin Time 27.7 Seconds (22.3-36.8)
[2024-06-21 17:04] LABS: Troponin I < 0.012 ng/mL (0.000-0.034)
[2024-06-21 18:30] VITALS: BP 165/96; PULSE 95; RESP 20; TEMP 36.6; O2SAT 100
== END 2024-06-21 18:30 | disposition home or self-care (01) ==
PROVIDERS: Emergency Provider Physician Assistant
DX: K20.90 Esophagitis, unspecified without bleeding (principal); R07.89 Other chest pain; I10 Essential (primary) hypertension
CPT/HCPCS: 36415; 71046; 80053; 83690; 84484; 85025; 85610; 85730; 93005; 99284; A9270